=== PATIENT | female | born 1960 | race Caucasian/White ===

== ENCOUNTER → 2018-01-03 07:12 | Outpatient (CLI) | payer BC, SELFPAY ==
--- NOTE | 2018-01-03 15:47 | DI.REPORT_ITS ---
SYMPTOM/DIAGNOSIS: RIGHT HEEL PAIN M79.671 RIGHT CALCANEUS: 01/03 Three views were obtained. There are large osteophytes of the sites of attachment of plantar fascia and Achilles tendon on the calcaneus. No other significant bony abnormality seen.
== END ==
PROVIDERS: PCP Emergency Medicine; Visit Provider Emergency Medicine
DX: M79.671 Pain in right foot (principal); M25.771 Osteophyte, right ankle
CPT/HCPCS: 73650

== ENCOUNTER 2018-03-29 08:39 | Day surgery (SDC) | payer BC, SELFPAY ==
[2018-03-29 08:58] VITALS: BP 135/88; PULSE 88; RESP 16; TEMP 35.7; O2SAT 97
[2018-03-29] MEDS: Lactated Ringers 1,000 ML 80 ML IV (09:25)
[2018-03-29] MEDS: Bupivacaine 0.25% Pres-Free 30 ML VIAL (11:50)
--- NOTE | 2018-03-29 13:11 | W.PM.DSUDISC ---
Discharge Plan Disposition Patient Disposition: HOME Condition: Good Discharge Details Reason For Visit: (R) CALCANEAL SPUR / ACHILLES TENDON Attending Provider: Ranjit Navarrete Primary Care Provider: Robb Bateman Home Meds and New Rx's Prescriptions: New hydrocodone-acetaminophen 5-325 mg tablet 1 tab PO Q6H PRN (Reason: pain) Qty: 7 RF: 0 ibuprofen 600 mg tablet 600 mg PO QID PRN (Reason: pain and inflamation) Qty: 60 RF: 0 Continue multivitamin 1 EACH capsule 1 ea PO DAILY RF: 0 vitamin B complex 1 EACH capsule 1 ea PO DAILY RF: 0 omega-3 fatty acids-fish oil 1 EACH capsule 2 ea PO DAILY RF: 0 naproxen 500 MG tablet 500 mg PO BID Qty: 60 RF: 1 clonazepam 0.5 MG tablet 0.5 mg PO BID PRN Qty: 60 RF: 2 cholecalciferol (vitamin D3) 5,000 UNIT capsule 5,000 unit PO DAILY RF: 0 folic acid 1 MG tablet 1 mg PO DAILY RF: 0 albuterol sulfate [ProAir HFA] 200 PUFF HFA aerosol inhaler 200 puff Inhalation PRN PRNRF: 0 sertraline 100 mg Tablet 100 mg PO RF: 0 Discharge Orders Discharge Orders: Discharge Order (Routine); Ordered 03/29/18 Ordered By: Ranjit Navarrete DS: Diagnosis Discharge Diagnosis (1) Achilles tendonosis of right lower extremity: Status: Acute
[2018-03-29 13:45] VITALS: BP 105/61; PULSE 73; RESP 16; TEMP 35.8; O2SAT 96
--- NOTE | 2018-03-29 15:23 | ROE_ITS ---
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 POSTOPERATIVE DIAGNOSIS: Same. PROCEDURE: 1. Debridement Achilles tendon. 2. Resection retrocalcaneal exostosis. 3. Resection Ashley's deformity. SURGEON: Michelle CardenasPTucker. ANESTHESIA: Spinal anesthesia. ANESTHESIA PROVIDER: Rudy Ray CRNA OPERATIVE INDICATIONS: 57-year-old female with chronic pain associated with the above-mentioned defo rmities of right Achilles tendinosis, retrocalcaneal spur and Ashley's deformity. She understands r isks and complications to surgery pertaining to pain, scarring, infection, wound dehiscence, Achilles tendon rupture, DVT, recurrent bone spur formation over time potentially requiring revisional proced ures. Informed consent has been obtained. No promises made to the final outcome of surgery. REPORT OF OPERATION: Myriam was brought to the operative suite, placed in the prone position once her spinal anesthetic was successfully achieved. A time-out was performed. All members of the surgical suite in agreement with site, patient, current meds, allergies and risks. Attention was now directed to the right lower extremity where a tourniquet was applied and the limb e xsanguinated and a well-padded thigh tourniquet inflated 350 mmHg. Attention was directed to the pos terior aspect of the heel, where a midline incision approximately 6 cm in length was made. The incis ion was deepened in controlled depth fashion; hemostasis acquired with electrocautery as needed. The Achilles tendon was readily visible. Dissection was carried down medially and laterally, releasing soft tissue from the tendon. #3-0 nylon was used to retract the skin both medially and laterally so it would be a no-touch procedure. Attention was now directed to the tendon. At the level of its insertion a transverse tenotomy was pe rformed. Slight medial and lateral upward cuts were performed to flip the Achilles tendon upwards. Calcification of the insertion point of the Achilles tendon is appreciated with thickening of the ten don and yellowing of the tendon mass. The tendon was sharply debrided, removing all fibrosed, ossifi ed or calcified material. Attention was now directed to the calcaneus. The posterior spur was easily identified. With osteoto me and mallet the exostosis was resected. All rough and bony edges were rasped smooth. Good correct ion was appreciated. The Ashley's deformity was readily evident and with osteotome and mallet, the posterior superior pole of the os calcis was resected. I did not find a retrocalcaneal bursal sac. No additional pathologic findings were appreciated. All rough and bony edges were rasped smooth and copious irrigation with normal saline performed. At this juncture, a Mitek soft tissue 5.0 mm soft t issue anchor was inserted into the central portion of the posterior aspect of the calcaneus at the le josefina of the Achilles insertion. The Achilles was sutured down into the soft tissue anchor in standard fashion utilizing two strands of the soft tissue anchor. Excellent position was noted. The medial and lateral regions were then sutured with simple interrupted suture #3-0 Vicryl. The subcutaneous l janet was subsequently closed with #3-0 Vicryl. The skin was coapted with continuous running suture # 4-0 Monocryl. Mastisol, half-inch Steri-Strips applied. Fluff, Kerlix rolls x2 were applied. The t ourniquet was released at fifty-seven minutes with vascularity returning immediately to the right miroslava t. A well-padded posterior splint was then applied. Myriam was turned onto her back and sent back to recovery with vital signs stable, vascular status intact. Sharp and sponge counts were correct. Patel gaona will be followed by me in the office next week. cc: Robb Bateman D.O.
== END 2018-03-29 15:12 | disposition home or self-care (01) ==
PROVIDERS: PCP Emergency Medicine; Visit Provider Podiatrist
PROC: (CPT 27654; principal; 2018-03-29 10:00)
PROC: (CPT 27654; 2018-03-29 10:00)
DX: M76.61 Achilles tendinitis, right leg (principal); M77.31 Calcaneal spur, right foot; M21.6X1 Other acquired deformities of right foot
CPT/HCPCS: 27654; 28118; 28119; C1713; E0114; J0690; J1100; J1885; J2250; J2405

== ENCOUNTER 2018-04-21 15:25 | Emergency (ER) | payer BC, SELFPAY ==
[2018-04-21 15:29] VITALS: BP 135/76; PULSE 84; RESP 12; TEMP 36.7; O2SAT 96
--- NOTE | 2018-04-21 15:37 | W.ED.GENAD ---
Discharge Plan Disposition Patient Disposition: HOME Condition: Stable Discharge Details Chief Complaint: Orthopedic Clinical Impression: Encounter for cast care, Paresthesia of foot Primary Care Provider: Robb Bateman ED Provider: Veronika Yee Home Meds and New Rx's Prescriptions: Continue multivitamin 1 EACH capsule 1 ea PO DAILY RF: 0 vitamin B complex 1 EACH capsule 1 ea PO DAILY RF: 0 omega-3 fatty acids-fish oil 1 EACH capsule 2 ea PO DAILY RF: 0 naproxen 500 MG tablet 500 mg PO BID Qty: 60 RF: 1 clonazepam 0.5 MG tablet 0.5 mg PO BID PRN Qty: 60 RF: 2 cholecalciferol (vitamin D3) 5,000 UNIT capsule 5,000 unit PO DAILY RF: 0 folic acid 1 MG tablet 1 mg PO DAILY RF: 0 albuterol sulfate [ProAir HFA] 200 PUFF HFA aerosol inhaler 200 puff Inhalation PRN PRNRF: 0 sertraline 100 mg Tablet 100 mg PO RF: 0 hydrocodone-acetaminophen 5-325 mg tablet 1 tab PO Q6H PRN (Reason: pain) Qty: 7 RF: 0 ibuprofen 600 mg tablet 600 mg PO QID PRN (Reason: pain and inflamation) Qty: 60 RF: 0 Discharge Instructions Instructions: Cast Care (ED) Additional Instructions: Call Dr. Navarrete's office tomorrow morning to schedule a follow-up appointment for reevaluation. Continue non weightbearing as directed. Return to the emergency department any worsening or new concerning symptoms. Discharge Data Discharge Date/Time-TO BE ENTERED AT DEPARTURE: 04/21/18 17:17 Discharge Physician: Veronika Yee Medical Decision Making 57yo F who is just over 3 weeks s/p achilles tendinitis debridement and resection fo retrocalcaneal exostosis/Hagland's deformity by Dr. Navarrete who presents for numbness of toes and sensation of swelling to ankle x 2 days. Had hard cast placed 2 weeks ago. No new injury. Pt states she was sent by addiction medicine physician Dr. Miles for removal of the splint and evaluation and possible placement of new splint. Vitals within normal limits. Pt appears nontoxic. No evidence of obvious infection. Motor/sensory grossly intact. Pt has a hard fiberglass cast in place. As she has no obvious signs of infection such as fever, and normal skin color around cast, would not want to remove Dr. Navarrete's cast. Will attempt to speak with him first. 1630 -- d/w Dr. Navarrete -recommends cutting the cast in one section from top to bottom to allow some relief of possible pressure. States the wound looked well prior to cast placement 2 weeks ago. Will follow up with patient later this week. Cast cutter was used to make a slit in the anterior portion of the cast from top to bottom and then spreaders were used to open the cast slightly. Patient tolerated procedure well and she feels much better. Patient instructed to return here with any concerns. HPI General Mode of arrival: wheelchair. Date/Time Provider Initiated Documentation: 04/21/18 15:28. Limitations to Documentation: no limitations. Information obtained by: patient. HPI Narrative: Patient is a 57 year old F who is just over 3 weeks s/p debridement of achilles tendon with resection of bone spurs w/ Dr. Navarrete who presents for toe numbness and sensation of swelling around ankle for the past 2 days. Pt states she initially had a soft cast but a hard cast was placed 2 weeks ago. Pt denies any new injury. She denies fever, increased pain or redness. She states she has been eating and drinking well. She states she called the addiction medicine physician doctor and was advised to come to the ER for removal of her cast for evaluation and placement of a new cast. Related Data Home Medications Medication Instructions Recorded Confirmed multivitamin 1 ea PO DAILY 11/12/12 04/21/18 omega-3 fatty acids-fish oil 2 ea PO DAILY 11/12/12 04/21/18 vitamin B complex 1 ea PO DAILY 11/12/12 04/21/18 albuterol sulfate [ProAir HFA] 200 puff INHALATION PRN PRN 04/26/15 04/21/18 naproxen 500 mg PO BID #60 tab-cap 09/15/15 04/21/18 clonazepam 0.5 mg PO BID PRN #60 tab 05/31/16 04/21/18 cholecalciferol (vitamin D3) 5,000 unit PO DAILY 08/09/16 04/21/18 folic acid 1 mg PO DAILY tab-cap 08/09/16 04/21/18 sertraline 100 mg PO 03/26/18 hydrocodone-acetaminophen 1 tab PO Q6H PRN #7 tab 03/29/18 04/21/18 ibuprofen 600 mg PO QID PRN #60 tab 03/29/18 04/21/18 Previous Rx's Medication Instructions Recorded hydrocodone-acetaminophen 1 tab PO Q6H PRN #7 tab 03/29/18 ibuprofen 600 mg PO QID PRN #60 tab 03/29/18 Allergies Allergy/AdvReac Type Severity Reaction Status Date / Time bacitracin Allergy Swelling/Ed Unverified 04/21/18 15:36 mariama codeine AdvReac Intermediate VOMITING Unverified 04/21/18 15:36 General Stated Complaint: Orthopedic NELLI: 4 Review of Systems Review of Systems All systems reviewed & are unremarkable except as noted in HPI and below Constitutional Reports as per HPI, Denies chills and Denies fever(s) Eyes Denies blurry vision ENT Denies dizziness, Denies sore throat and Denies throat swelling Cardiovascular Denies chest pain and Denies dyspnea Respiratory Denies dyspnea Gastrointestinal Denies abdominal pain, Denies diarrhea and Denies vomiting Genitourinary Denies hematuria and Denies dysuria Musculoskeletal Denies back pain and Reports numbness Integumentary/Breasts Denies lesions and Denies rash Neurologic Denies dizziness and Reports numbness Allergic/Immunologic Denies throat swelling PFSH Achilles tendonitis (Acute) PTSD (post-traumatic stress disorder) (Acute) Anxiety (Chronic) Depression (Chronic) Obesity (Chronic) Family History Mother Personal history of malignant neoplasm Myasthenia Father Alcohol abuse Personal history of malignant neoplasm Sister No problems noted. Grandfather Leukemia Grandfather Dementia Grandmother Heart disease Grandmother No problems noted. Daughter No problems noted. Daughter PTSD (post-traumatic stress disorder) Depression H/O shoulder surgery (Chronic) Tonsillectomy and adenoidectomy Family History Mother Personal history of malignant neoplasm Myasthenia Father Alcohol abuse Personal history of malignant neoplasm Sister No problems noted. Grandfather Leukemia Grandfather Dementia Grandmother Heart disease Grandmother No problems noted. Daughter No problems noted. Daughter PTSD (post-traumatic stress disorder) Depression Medical History Achilles tendonitis (Acute) PTSD (post-traumatic stress disorder) (Acute) Anxiety (Chronic) Depression (Chronic) Obesity (Chronic) Social History Smoking/Tobacco Use Status: Never Surgical History H/O shoulder surgery (Chronic) Tonsillectomy and adenoidectomy Social History Smoking/Tobacco Use Status: Never Exam Const General: cooperative, healthy appearing and no acute distress HENMT Head: normal to inspection Mouth: oral mucosae normal Eyes General: appearance normal, both eyes and all related structures Neck Neck: normal visual inspection Resp Effort & Inspection: normal respiratory effort and able to speak in complete sentences Cardio Rate: regular rate Skin General skin exam: no rashes or lesions noted Neuro General: alert, awake and oriented x3 Motor: muscle tone normal throughout Other: Motor/sensory grossly intact. Wiggles toes. Full ROM R leg. Extrem Other: Hard fiberglass splint noted on R lower leg. Skin color normal. No erythema, edema, ecchymoses. Psych Appearance: grossly normal Affect: normal affect Course Vital Signs Temperature 98.1 F 04/21/18 15:29 Pulse 84 04/21/18 15:29 Respiratory Rate 12 04/21/18 15:29 Blood Pressure 135/76 04/21/18 15:29 Pulse Oximetry 96 04/21/18 15:29 Temperature 98.1 F 04/21/18 15:29 Temperature Source Temporal Artery Scan 04/21/18 15:29 Pulse 84 04/21/18 15:29 Respiratory Rate 12 04/21/18 15:29 Respiratory Effort Non-Labored 04/21/18 15:33 Blood Pressure 135/76 04/21/18 15:29 Pulse Oximetry 96 04/21/18 15:29 Oxygen Delivery Method Room Air 04/21/18 15:29 Oxygen Flow Rate 0 04/21/18 15:29 Pain Level 4 04/21/18 15:35
== END 2018-04-21 17:17 | disposition home or self-care (01) ==
LOC: ER 17:19
PROVIDERS: Emergency Provider Physician Assistant; PCP Emergency Medicine
DX: R20.2 Paresthesia of skin (principal)
CPT/HCPCS: 99282

== ENCOUNTER 2018-10-14 19:15 | Outpatient (REF) | payer OTHER, SELFPAY | END 2018-10-14 19:35 | LOC: LBN 19:15 | PROVIDERS: PCP Emergency Medicine | DX: S51.851A Open bite of right forearm, initial encounter (principal); W54.0XXA Bitten by dog, initial encounter | CPT/HCPCS: 87070; 87205 ==

== ENCOUNTER 2020-02-27 04:16 | Outpatient (CLI) | payer OTHER, SELFPAY ==
--- NOTE | 2020-02-27 06:45 | DI.US_ITS ---
EXAM: US ABDOMEN CLINICAL HISTORY: epigastric abd pain,r10.13 TECHNIQUE: Ultrasound abdomen performed using standard protocol. COMPARISON: No exams were available for comparison FINDINGS: ABDOMINAL AORTA AND IVC: Visualized portions normal caliber. PANCREAS: Normal where visualized. LIVER: Diffuse increased echogenicity. Hepatopedal flow in the Portal Vein. The liver measures 17.8 cm in length. GALLBLADDER: No evidence of cholelithiasis. No evidence of wall thickening. No pericholecystic fluid identified. BILIARY SYSTEM: Common bile duct measures < 7 mm. No intrahepatic biliary ductal dilation. VAZQUEZ'S SIGN: Negative. KIDNEYS: Kidneys are symmetric in size. No evidence of renal calculi. No evidence of hydronephrosis. No renal mass or cyst identified. SPLEEN: Not enlarged. ASCITES: None seen. IMPRESSION: Hepatomegaly and hepatic steatosis. DATA REPOSITORY:
--- NOTE | 2020-02-27 06:45 | DI.US_ITS ---
EXAM: US LOWER EXTREMITY VENOUS RT CLINICAL HISTORY: right popliteal pain,bakers cyst,m71.20 TECHNIQUE: Right lower extremity venous ultrasound performed using grayscale, color-flow, and spectr al Doppler analysis. COMPARISON: No exams were available for comparison FINDINGS: The right common femoral, femoral and popliteal veins demonstrate normal compressibility, augmentatio n, and color Doppler. The posterior tibial veins are patent. The saphenofemoral junction is unremark able. There is no evidence of a Andersen cyst. The soft tissues are unremarkable. IMPRESSION: No DVT. DATA REPOSITORY:
== END 2020-02-27 04:36 ==
PROVIDERS: PCP Emergency Medicine; Visit Provider Emergency Medicine
DX: K76.0 Fatty (change of) liver, not elsewhere classified (principal); R10.13 Epigastric pain; M25.561 Pain in right knee
CPT/HCPCS: 76700; 93971

== ENCOUNTER 2020-03-02 01:19 | Outpatient (CLI) | payer OTHER, SELFPAY ==
[2020-03-02 08:24] LABS: Hemoglobin A1C 5.6 % (<5.7)
[2020-03-02 09:10] LABS: Vitamin B12 287 pg/mL (193-986)
== END 2020-03-02 01:39 ==
PROVIDERS: PCP Emergency Medicine; Visit Provider Emergency Medicine
DX: E11.9 Type 2 diabetes mellitus without complications (principal); G62.9 Polyneuropathy, unspecified; M71.20 Synovial cyst of popliteal space [Baker], unspecified knee
CPT/HCPCS: 36415; 82607; 83036

== ENCOUNTER 2020-08-12 10:27 | Emergency (ER) | payer OTHER, SELFPAY ==
[2020-08-12] VITALS (28 sets, daily range): BP systolic 110–154; BP diastolic 62–82; PULSE 72–105; RESP 15–24; TEMP 36.4–36.5; O2SAT 94–97
--- NOTE | 2020-08-12 10:15 | RT.EKG_ITS ---
APPROVED REPORT Exam: Resting ECG Patient Location: E HR:91 bpm ECG Measurements Heart Rate 91 AXIS NV 170 P 43 QRSd 94 QRS 14 QT 367 T 31 QTc 453 Conclusion Sinus rhythm. No STEMI
--- NOTE | 2020-08-12 10:59 | ED.GENADUL_ITS ---
Discharge Plan Disposition Patient Disposition: HOME Condition: Good Discharge Details Clinical Impression: Pulmonary embolism Primary Care Provider: Robb Bateman ED Provider: Ines Dietrich Home Meds and New Rx's Prescriptions: New Eliquis DVT-PE Treat 30D Start 5 mg (74 tabs) tablets,dose pack See Rx Instructions .ROUTE .COMPLEX Qty: 74 RF: 0 ondansetron HCl [Zofran] 4 mg tablet 4 mg PO Q8H Qty: 10 RF: 0 No Action naproxen 500 mg tablet 500 mg PO BID PRNRF: 0 multivitamin 1 EACH capsule 1 ea PO DAILY RF: 0 vitamin B complex 1 EACH capsule 1 ea PO DAILY RF: 0 omega-3 fatty acids-fish oil 1 EACH capsule 2 ea PO DAILY RF: 0 cholecalciferol (vitamin D3) 5,000 UNIT capsule 5,000 unit PO DAILY RF: 0 clonazepam 0.5 mg tablet 0.5 mg PO BID PRN Qty: 60 RF: 0 fluoxetine 20 mg tablet 20 mg PO DAILY Qty: 90 RF: 3 Discharge Instructions Additional Instructions: Take Eliquis as instructed Follow-up with your doctor tomorrow and let them know you have been diagnosed with a pulmonary embolism, you have started on anticoagulation This was called Eliquis Zofran as needed for nausea and vomiting Please return for worsening shortness of breath, chest pain, if you notice blood in your stool, if you have head injury or if any new or worsening symptoms should arise Discharge Data Discharge Date/Time-TO BE ENTERED AT DEPARTURE: 08/12/20 16:31 Medical Decision Making Case discussed with Rosalina subsegmental pulmonary embolism, patient has a PESI score of61 and she is very low risk for 30-day mortality, she is stable for discharge home at this time I will place the patient on Eliquis, I discussed risk associated with bleeding in detail She will start Eliquis this evening Feeling symptomatically improved after Zofran and fluids Given negative troponin with 24 hours of symptoms I think discharge home at this time is reasonable Ambulatory with steady gait without hypoxia Low suspicion for cardiac etiology of patient's symptoms, she has a negative troponin with greater than 12 hours of symptoms which is reassuring Will need to follow-up with primary care physician tomorrow for reevaluation and Eliquis management Ambulatory with steady gait and symptomatically improved No evidence of heart strain on CT or pulmonary infarct Needed admission first returning home and patient prefers to be discharged home time she has given very low threshold to return should she have new or worsening complaints She has no signs or symptoms suggestive of COVID-19 and HPI This 68-year-old female with a history of peripheral neuritis presents with report of epigastric pain that started yesterday and persisted through the evening. Has been nausea without vomiting. Has been moving her bowels. Denies diarrhea. Denies any chest pain or shortness of breath at this time. Denies prior history of similar symptoms in the past. Denies intra-abdominal surgeries. Denies any urinary complaint. Denies known exacerbating or alleviating factors. Denies history of hypertension, hyperlipidemia, early cardiac family disease. Does not smoke tobacco. Denies prior stress test in the past. Denies recent flights, surgeries, long drives. Denies known sick contacts. General Date/Time Provider Initiated Documentation: 08/12/20 10:40 . Related Data Home Medications Medication Instructions Recorded Confirmed multivitamin 1 ea PO DAILY 11/12/12 08/12/20 omega-3 fatty acids-fish oil 2 ea PO DAILY 11/12/12 08/12/20 vitamin B complex 1 ea PO DAILY 11/12/12 08/12/20 cholecalciferol (vitamin D3) 5,000 unit PO DAILY 08/09/16 08/12/20 clonazepam 0.5 mg tablet 0.5 mg PO BID PRN #60 tab 07/17/19 08/12/20 fluoxetine 20 mg tablet 20 mg PO DAILY #90 tab 11/25/19 08/12/20 naproxen 500 mg tablet 500 mg PO BID PRN tab-cap 02/13/20 08/12/20 apixaban [Eliquis DVT-PE Treat 30D See Rx Instructions .ROUTE 08/12/20 Start] .COMPLEX #74 dose pk ondansetron HCl [Zofran] 4 mg PO Q8H #10 tab 08/12/20 Previous Rx's Medication Instructions Recorded clonazepam 0.5 mg tablet 0.5 mg PO BID PRN #60 tab 07/17/19 fluoxetine 20 mg tablet 20 mg PO DAILY #90 tab 11/25/19 apixaban [Eliquis DVT-PE Treat 30D See Rx Instructions .ROUTE 08/12/20 Start] .COMPLEX #74 dose pk ondansetron HCl [Zofran] 4 mg PO Q8H #10 tab 08/12/20 Allergies Allergy/AdvReac Type Severity Reaction Status Date / Time bacitracin Allergy Swelling/Ed Verified 08/12/20 10:36 mariama codeine AdvReac Intermediate VOMITING Verified 08/12/20 10:36 General Stated Complaint: Nausea/Vomit/Diar NELLI: 3 Review of Systems Narrative: Review of systems obtained x7 aside from where indicated in HPI [facility] Medical History (Updated 08/12/20 @ 15:19 by AURE Ochoa) Achilles tendonitis Anxiety Depression Obesity Peripheral neuritis PTSD (post-traumatic stress disorder) Surgical History H/O shoulder surgery Tonsillectomy and adenoidectomy Family History Mother Personal history of malignant neoplasm LUNG Myasthenia Father Alcohol abuse Personal history of malignant neoplasm PROSTATE Sister No problems noted. Grandfather Leukemia Grandfather Dementia Grandmother Heart disease Grandmother No problems noted. Daughter , ACCIDENTAL at age 12. No problems noted. Daughter PTSD (post-traumatic stress disorder) Depression Social History Smoking/Tobacco Use Status: Never Smoking risk assessment performed?: Yes Drug use: Never Do you feel safe in your relationship?: Yes Exam Const General: cooperative Orientation: alert HENMT Other: Moist mucous membranes Chest Chest: normal inspection of the chest Resp Effort & Inspection: normal respiratory effort Auscultation: clear to auscultation bilaterally Cardio Rate: regular rate Rhythm: regular rhythm GI Other: Abdominal tenderness, predominantly right upper quadrant epigastrium no rebound or guarding Skin Other: Warm and dry Neuro General: patient alert and patient oriented x3 Course Vital Signs Vital signs: Vital Signs Temperature 36.4 C L 08/12/20 10:33 Pulse 105 H 08/12/20 10:33 Respiratory Rate 20 08/12/20 10:33 Blood Pressure 154/80 H 08/12/20 10:33 Pulse Oximetry 95 08/12/20 10:33 Temperature 36.4 C L 08/12/20 10:33 Temperature Source Skin 08/12/20 10:33 Pulse 105 H 08/12/20 10:33 Respiratory Rate 20 08/12/20 10:33 Respiratory Effort Non-Labored 08/12/20 10:52 Blood Pressure 154/80 H 08/12/20 10:33 Blood Pressure Position Sitting 08/12/20 10:33 Pulse Oximetry 95 08/12/20 10:33 Oxygen Delivery Method Room Air 08/12/20 10:33 Oxygen Flow Rate 0 08/12/20 10:33 Pain Level 2 08/12/20 10:33
[2020-08-12] MEDS: Normal Saline 1,000 ML 1000 ML IV (11:07)
[2020-08-12] MEDS: Ondansetron 4 MG/2 ML VIAL IVP ×2 (11:07→16:16)
[2020-08-12 11:08] LABS: Abs Immature Grans 0.02 10^3/uL (0.0-0.06); Absolute Basophil Count 0.03 10^3/uL (0.0-0.2); Absolute Eosinophil Count 0.16 10^3/uL (0.0-0.7); Absolute Lymphocyte Count 1.81 10^3/uL (1.2-3.4); Absolute Monocyte Count 0.64 10^3/uL (0.1-0.8); Absolute Neutrophil Count 6.89 10^3/uL (1.2-6.7); Basophils % 0.3; Eosinophils % 1.7; HGB 14.7 g/dL (11.2-15.7); Immature Grans % 0.2; MCHC 34.2 % (32.0-36.0); MCV 93.5 fL (80-95); MPV 9.8 fL (8.0-11.0); Monocytes % 6.7; Neutrophils % 72.1; Nucleated RBC 0 %; Platelet Count 233 10^3/uL (130-400); RDW 11.9 % (11.7-14.6); RDW-SD 40.9 fL; WBC 9.55 10^3/uL (4.4-10.8)
[2020-08-12 11:23] LABS: ALT 40 U/L (14-59); AST 28 U/L (15-37); Alkaline Phosphatase 109 U/L (46-116); Anion Gap 10.6 mmol/L (3-11); BUN 13 mg/dL (7-18); Bilirubin, Total 0.9 mg/dL (0.2-1.0); CO2 26.4 mmol/L (21.0-32.0); CREATININE 0.8 mg/dL (0.55-1.02); Calcium 9.3 mg/dL (8.5-10.1); Chloride 101 mmol/L (98-107); Glucose 96 mg/dL (74-106); Lipase 193 U/L (73-393); Potassium 3.8 mmol/L (3.5-5.1); Sodium 138 mmol/L (136-145); Total Protein 7.9 g/dL (6.4-8.2)
[2020-08-12 11:24] LABS: Troponin I < 0.05 ng/mL (<0.06)
--- NOTE | 2020-08-12 11:30 | DI.CT_ITS ---
EXAM: CT THORAX ABD/PEL CTA CLINICAL HISTORY: epigastric pain, weakness, diaphoresis, shortness. TECHNIQUE: Imaging Protocol: Axial computed tomography images with coronal and sagittal reformatted images were created and reviewed CONTRAST MATERIAL: Intravenous: Omnipaque 350 Contrast volume:100 ml Oral: None COMPARISON: No exams were available for comparison FINDINGS: CHEST: AORTA: Heart size is normal. There is no pericardial effusion. Caliber of the thoracic aorta is within nor mal limits. No dissection. In the abdomen the aorta exhibits normal diameter. Minimal atherosclero tic disease. Celiac and superior mesenteric arteries are nicely patent as are the origin of the santo l arteries. Inferior mesenteric artery is also patent. There is no evidence of significant stenosis at the aortic bifurcation. Common iliac arteries exhibit normal diameters. No significant narrowin g. No dissection. External iliac arteries are also patent bilaterally as are the common femoral art eries and proximal visualized aspects of both SFA arteries. Both internal iliac arteries are patent and nonaneurysmal. LUNGS: No infiltrates nor pleural effusions. No ominous pulmonary nodule seen. There is intralumina l filling defect in 1 of the right lower lobe pulmonary arteries. Probably consistent with pulmonary embolus. There is no evidence of pulmonary infarction. Also no pleural effusions. MEDIASTINUM: There is no hilar nor mediastinal adenopathy. Visualized thyroid unremarkable. CARDIAC: Heart size is normal. There is no pericardial effusion. ABDOMEN: There is no ascites. LIVER: Liver is hypodense implying steatosis. No discrete focal hepatic lesions identified. No dila tation of intrahepatic ducts. GALLBLADDER/BILIARY: No obvious gallbladder pathology. CBD is not dilated. PANCREAS: No evidence of pancreatic mass nor dilatation of the pancreatic duct. SPLEEN: Spleen is not enlarged. There are no intrasplenic lesions. Splenic and portal veins are bradford nt. ADRENALS: There are no significant adrenal masses. KIDNEYS: Kidneys exhibit normal size. No intrarenal calculi nor hydronephrosis. No ominous renal ma sses. No obvious cysts. . ABDOMINAL AORTA: The abdominal aorta is not enlarged. LYMPH NODES: There is no retroperitoneal nor para-aortic adenopathy. No obvious mesenteric masses. ABDOMINAL WALL/GI: Small fat containing umbilical hernia. No bowel obstruction no inguinal hernias. PELVIS: LYMPH NODES: There is no intrapelvic nor inguinal adenopathy. GI: Appendix appears unremarkable.Sigmoid diverticulosis. No obvious acute diverticulitis. URINARY BLADDER: Collapsed. REPRODUCTIVE: Age-appropriate. No abnormal adnexal masses. OSSEOUS: No significant osseous lesions. IMPRESSION: 1. No evidence of aortic dissection. No pericardial effusion. No evidence of aortic aneurysm. Mild atherosclerotic disease. Aortoiliac segments also unremarkable. 2. Intraluminal filling defect right lower lobe pulmonary artery consistent with pulmonary embolus. 3. Sigmoid diverticulosis. No evidence of acute diverticulitis. Report called by myself to ER physician following completion of the study 4 1 21 RADIATION DOSE DELIVERED: 1,327.94mGy.cm Total DLP DATA REPOSITORY: All CT scans at this facility are submitted to the National Radiology Data Registry (NRDR) Dose Index Registry (DIR) with the [employer] (ACR). RADIATION OPTIMIZATION: All CT scans at this facility use at least one of these dose optimization te chniques: automated exposure control; mA and/or kV adjustment per patient size (includes targeted exa ms where dose is matched to clinical indication); or iterative reconstruction.
[2020-08-12 11:38] LABS: D-Dimer 538 ng/mlFEU (<500)
[2020-08-12] MEDS: Normal Saline - Diluent 50 ML VIAL IV (13:45)
[2020-08-12] MEDS: Omnipaque 350 MG/ML 100 ML BTL IJ (13:46)
[2020-08-12] MEDS: Normal Saline Flush 10 ML SYR IVP ×2 (13:46→16:16)
--- NOTE | 2020-08-12 15:07 | CMPROGNOTE_ITS ---
- If Service Date Differs Date of service: 08/12/20 Time of Service: 15:07 Care Management Progress Note CM was paged for Myriam's new prescription for Eliquis. CM faxed an Eliquis coupon to her pharmacy, [facility] in [place] prior to her discharge. She has commercial insurance, so she will have a $10 copay, per Eliquis coupon card.
== END 2020-08-12 16:31 | disposition home or self-care (01) ==
PROVIDERS: Emergency Provider Physician Assistant; PCP Emergency Medicine
DX: I26.93 Single subsegmental thrombotic pulmonary embolism without acute cor pulmonale (principal); R11.0 Nausea
CPT/HCPCS: 74177; 80053; 83690; 93005; 96361; 96374; 96376; 99285; 84484; 85025; 85379; 93010; 99284; J2405; J3490

== ENCOUNTER 2020-08-13 10:04 | Outpatient (CLI) | payer OTHER, SELFPAY ==
[2020-08-14 14:35] LABS: COVID-19 RT-PCR UVMMC Result Negative (Negative)
== END 2020-08-13 10:05 | disposition home or self-care (01) ==
PROVIDERS: PCP Emergency Medicine; Visit Provider Emergency Medicine
DX: Z20.822 Contact with and (suspected) exposure to COVID-19 (principal)
CPT/HCPCS: U0003

== ENCOUNTER 2020-08-18 09:06 | Outpatient (REF) | payer OTHER, SELFPAY ==
[2020-08-18 11:50] LABS: Abs Immature Grans 0.02 10^3/uL (0.0-0.06); Absolute Basophil Count 0.04 10^3/uL (0.0-0.2); Absolute Eosinophil Count 0.19 10^3/uL (0.0-0.7); Absolute Lymphocyte Count 1.72 10^3/uL (1.2-3.4); Absolute Monocyte Count 0.45 10^3/uL (0.1-0.8); Absolute Neutrophil Count 3.27 10^3/uL (1.2-6.7); Basophils % 0.7; Eosinophils % 3.3; HCT 42.3 % (36.0-46.0); HGB 14.2 g/dL (11.2-15.7); Immature Grans % 0.4; Lymphocytes % 30.2; MCH 31.7 pg (27.0-33.0); MCHC 33.6 % (32.0-36.0); MCV 94.4 fL (80-95); MPV 10.2 fL (8.0-11.0); Monocytes % 7.9; Neutrophils % 57.5; Nucleated RBC 0 %; Platelet Count 269 10^3/uL (130-400); RBC 4.48 10^6/uL (3.93-5.22); RDW 11.9 % (11.7-14.6); RDW-SD 41.2 fL; WBC 5.69 10^3/uL (4.4-10.8)
[2020-08-18 11:53] LABS: ESR 9 mm//hr (0-30)
[2020-08-18 12:03] LABS: C-Reactive Protein 0.32 mg/dL (0.0-0.3)
[2020-08-18 12:32] LABS: D-Dimer 596 ng/mlFEU (<500)
== END 2020-08-18 09:07 | disposition home or self-care (01) ==
LOC: LBN 09:06
PROVIDERS: PCP Emergency Medicine; Visit Provider Emergency Medicine
DX: I26.99 Other pulmonary embolism without acute cor pulmonale (principal)
CPT/HCPCS: 85652; 85025; 85379; 86140

== ENCOUNTER 2021-01-25 03:36 | Outpatient (RCR) | payer OTHER, SELFPAY ==
--- NOTE | 2021-01-25 09:00 | HOLTER_ITS ---
APPROVED REPORT Conclusion This was a 48-hour Holter monitor reportedly ordered for tachycardia Rhythm throughout was sinus. Average heart rate was 89. Minimum was 65, maximum 135 There were very rare isolated atrial and ventricular ectopic beats There was no atrial fibrillation, no high-grade AV block, no pauses greater than 3 seconds No patient symptoms were reported
== END 2021-02-10 23:59 | disposition home or self-care (01) ==
LOC: RT 03:36
PROVIDERS: PCP Emergency Medicine; Visit Provider Emergency Medicine
DX: R00.0 Tachycardia, unspecified (principal)
CPT/HCPCS: 93225; 93226

== ENCOUNTER 2021-06-24 02:18 | Outpatient (CLI) | payer OTHER, SELFPAY ==
[2021-06-24 10:31] LABS: ALT 44 U/L (14-59); AST 23 U/L (15-37); Albumin 4.1 g/dL (3.4-5.0); Alkaline Phosphatase 114 U/L (46-116); Bilirubin, Direct 0.1 mg/dL (0.0-0.2); Bilirubin, Total 0.5 mg/dL (0.2-1.0); TSH 3.76 uIU/mL (0.36-3.74); Total Protein 7.3 g/dL (6.4-8.2)
[2021-06-24 10:46] LABS: Calculated LDL 179 mg/dL (<100); Cholesterol 263 mg/dL (<200); HDL Cholesterol 46 mg/dL (40-60); Triglyceride 190 mg/dL (<150)
== END 2021-06-24 02:19 | disposition home or self-care (01) ==
LOC: LBO 02:18
PROVIDERS: PCP Family Medicine; Visit Provider Emergency Medicine
DX: R10.13 Epigastric pain (principal); R00.0 Tachycardia, unspecified; K75.81 Nonalcoholic steatohepatitis (NASH); F41.8 Other specified anxiety disorders; R79.89 Other specified abnormal findings of blood chemistry
CPT/HCPCS: 36415; 80061; 80076; 84443

== ENCOUNTER 2021-12-06 02:56 | Outpatient (CLI) | payer OTHER, SELFPAY ==
--- NOTE | 2021-12-06 07:45 | DI.RAD_ITS ---
Exam(s) XR SHOULDER LT COMPLETE 2+V EXAM: XR SHOULDER LT COMPLETE 2+V CLINICAL HISTORY: fall one month ago persistant pain, lt shoulder pain, M25.512. TECHNIQUE: 2D digital imaging was performed of the left shoulder. Five images were obtained. AP, G rashey, Y-view and axillary views were obtained. COMPARISON: CR LEFT SHOULDER COMPLETE from 03/15/2015 FINDINGS: BONES: No acute fracture is present. No bony destructive lesion is seen. JOINTS: No dislocation present. Mild degenerative changes are seen at the acromioclavicular joint. SOFT TISSUE: Normal. IMPRESSION: Mild degenerative changes of the AC joint. DATA REPOSITORY: RADIATION DOSE DELIVERED:
== END 2021-12-06 03:16 ==
LOC: DI 02:56
PROVIDERS: PCP Family Medicine; Visit Provider Physician Assistant
DX: M25.512 Pain in left shoulder (principal); G89.11 Acute pain due to trauma; M19.012 Primary osteoarthritis, left shoulder; W19.XXXA Unspecified fall, initial encounter
CPT/HCPCS: 73030

== ENCOUNTER 2022-02-22 01:41 | Outpatient (CLI) | payer OTHER, SELFPAY ==
--- NOTE | 2022-02-22 06:30 | DI.MRI_ITS ---
Exam(s) MR UPPER JOINT LT WO CLINICAL HISTORY: SHOULDER INJURY,lt shoulder pain, m25.512. TECHNIQUE: Multiplanar multisequence MRI was performed. COMPARISON: None FINDINGS: MR examination of the shoulder was performed according to the usual protocol. There is no significant effusion of the glenohumeral joint. Trace fluid in the subacromial subdeltoi d bursa. Bones and labrum: No bony signal abnormality seen. Moderate hypertrophic changes at the acromioclavi cular joint. Glenoid labrum appears deficient anteriorly consistent with a chronic tear. There is t hinning of the articular cartilage of the humerus period. Rotator cuff: Supraspinatus infraspinatus, and teres minor muscles and tendons show normal signal an d no evidence of a tear. There is markedly abnormal signal in the subscapularis tendon with full-thickness tear noted, central portions of the tendon appear retracted but there are also of portions of the pending 8 insertion wh ich appear intact. Rotator interval structures are poorly defined and apparently disrupted with significant rotator inte rval tear. Biceps tendon and anchor: Biceps tendon and anchor show abnormal signal, no definite retracted tear.. Biceps tendon is markedly displaced medially from the bicipital groove.. IMPRESSION: Full-thickness subscapularis tendon tear with retraction of central portions of the tendon. Marked a ssociated rotator interval tear, marked medial displacement of long head of the biceps with biceps te ndinopathy, and apparent anterior glenoid labral tear.. Remainder of the rotator cuff appears intact. DATA REPOSITORY:
== END 2022-02-22 02:01 ==
LOC: DI 01:42
PROVIDERS: PCP Family Medicine; Visit Provider Student in an Organized Health Care Education/Training Program
DX: M75.102 Unspecified rotator cuff tear or rupture of left shoulder, not specified as traumatic
CPT/HCPCS: 73221

== ENCOUNTER 2022-02-23 12:37 | Emergency (ER) | payer OTHER, SELFPAY ==
[2022-02-23 12:40] VITALS: BP 136/82; PULSE 90; RESP 18; TEMP 37; O2SAT 99
--- NOTE | 2022-02-23 13:00 | DI.RAD_ITS ---
Exam(s) XR KNEE LT 3V AP,LAT,MAIK EXAM: XR KNEE LT 3V AP,LAT,MAIK CLINICAL HISTORY: pain, swelling, post fall. TECHNIQUE: 2D digital imaging was performed of the left knee. Three images were obtained. AP, late ral and PA tunnel views were obtained. COMPARISON: None. FINDINGS: BONES: There is an acute nondisplaced patellar fracture. No bony destructive lesion is seen. JOINTS: The knee is normally aligned. There is a hemarthrosis. [id number] degenerative changes are seen in all 3 joint compartments. SOFT TISSUE: Normal. IMPRESSION: Acute nondisplaced patellar fracture. DATA REPOSITORY: RADIATION DOSE DELIVERED:
[2022-02-23] MEDS: Ondansetron O.D.T. 4 MG TABEF 8 MG PO (13:27)
[2022-02-23] MEDS: oxyCODONE 5 mg/Acetaminophen 325 mg TAB 1 TAB PO (13:27)
--- NOTE | 2022-02-23 15:04 | W.ORTHOCONSU ---
Assessment and Plan Assessment and plan (1) Fracture of patella, left, closed: Status: Acute Assessment and plan: 61-year-old female status post mechanical fall with left non-displaced patella fracture, left ankle abrasion, and right wrist contusion; recently worked up left rotator cuff tear Left anterior knee edema. Left ankle superficial abrasion. Right wrist volar ecchymosis without deformity. Able to maintain straight leg raise and ambulate appropriately with walker and hinged knee brace. Discussed usual nonoperative treatment of nondisplaced, largely longitudinal oriented patella fracture. Weightbearing as tolerated in full extension at all times using knee brace and walker for support. Follow-up with me next week as patient already has appointment to review her left shoulder MRI. PFSH All Active Problems (Updated 02/23/22 @ 15:05 by David Morales MD) Fracture of patella, left, closed (Acute 02/23/22) Traumatic tear of left rotator cuff (Acute 11/09/21) Shoulder pain, left (Acute) COVID-19 (Acute ~10/25/21) Elevated TSH (Acute) Anxiety (Chronic) Depression (Chronic) Sensorineural hearing loss (SNHL) of both ears (Acute 08/10/14) Overweight (Acute 10/10/16) STUART (nonalcoholic steatohepatitis) (Acute) Peripheral neuritis (Acute) Medical History Achilles tendonosis of right lower extremity Acromioclavicular joint arthritis (05/10/15) History of asthma History of melanoma Hx pulmonary embolism (~08/2020) occurred 3 days after covid vaccination Migraine equivalent syndrome (09/09/14) TIA like symptoms Mucous polyp of cervix Obesity Pancolonic diverticulosis 04/26/15; DR. CONLEY Psoriatic arthritis (10/10/16) PTSD (post-traumatic stress disorder) Surgical History H/O shoulder surgery S/P tonsillectomy and adenoidectomy Family History Mother , 76 Personal history of malignant neoplasm LUNG Myasthenia Father , 78 Alcohol abuse Personal history of malignant neoplasm PROSTATE Sister Anxiety Grandfather Leukemia Grandfather Dementia Grandmother Heart disease Daughter , 23 PTSD (post-traumatic stress disorder) Depression Alcohol abuse Social History Smoking/Tobacco Use Status: Never Second Hand Exposure: Yes Smoking risk assessment performed?: Yes Alcohol Intake: current Alcohol Intake frequency: a few times a week Alcohol type: wine and hard liquor Drug use: Occasionally Substance use type: marijuana Household members: significant other Housing: house Communication Needs: Hard of Hearing Do you need help understanding health information?: Rarely 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[employer] Pets and animals: Yes Pets and animals: cat(s) and dog(s) Sexually active: Yes Do you think of yourself as: straight/heterosexual Current gender identity: female What is your relationship status?: How often do you talk on the phone with friends or family?: three or more times per week How often do you attend confucianist or pentecostal services?: 4 or more times per year Do you belong to any clubs or organized social groups?: no Panel score (0-1 are the most socially isolated patients): 2 Brandy/Christian: Quaker Special brandy needs: No Seatbelt use: always Helmet use: No Drive intox or ride w/intox delivery driver assistant: No Do you feel safe in your relationship?: Yes Results Last Vital Signs Temp 98.6 F 02/23/22 12:40 Pulse 90 02/23/22 12:40 Resp 18 02/23/22 12:40 BP 136/82 02/23/22 12:40 Pulse Ox 99 02/23/22 12:40
--- NOTE | 2022-02-25 20:38 | W.ED.GENAD ---
Discharge Plan Disposition Patient Disposition: HOME Condition: Stable Discharge Details Clinical Impression: Closed patellar sleeve fracture Primary Care Provider: Lynn Sanchez ED Provider: Ines Dietrich Home Meds and New Rx's Prescriptions: New oxycodone 5 mg capsule 5 mg PO Q6H PRNQty: 10 0RF Continued clonazepam 0.5 mg tablet 0.5 mg PO BID PRN Qty: 60 5RF omeprazole 20 mg capsule,delayed release(DR/EC) 20 mg PO DAILY Qty: 60 6RF omega-3 fatty acids [Fish Oil Concentrate] 1,000 mg capsule 1,000 mg PO DAILY magnesium 250 mg tablet 250 mg PO DAILY multivitamin 1 EACH capsule 1 ea PO DAILY vitamin B complex 1 EACH capsule 1 ea PO DAILY cholecalciferol (vitamin D3) 5,000 UNIT capsule 5,000 unit PO DAILY Eliquis 2.5 mg tablet See Rx Instructions .ROUTE .COMPLEX Qty: 180 1RF Dose Instruction: TAKE ONE TABLET BY MOUTH TWICE A DAY (DOSE DECREASE) Rx Instructions: TAKE ONE TABLET BY MOUTH TWICE A DAY (DOSE DECREASE) fluoxetine 40 mg capsule 40 mg PO DAILY Qty: 90 1RF Discharge Instructions Additional Instructions: Take oxycodone as needed for pain Take Tylenol every 4-6 hours as needed for discomfort Wear your knee immobilizer Please return with any new or worsening complaints Follow-up with Dr. Morales at your scheduled appointment next week Referrals: Lynn Sanchez MD [Primary Care Provider] - 1 day Discharge Data Discharge Date/Time-TO BE ENTERED AT DEPARTURE: 02/23/22 15:16 Medical Decision Making pt appears well xray knee per radiology interpretation and my review does not show evidence of acute abnormality no sign of head injury and alert and oriented discharged home in stable condition with stable vitals Medical Records Medical records reviewed: Yes I reviewed the patient's medical records. Lab Data Lab results reviewed: Yes I reviewed the patient's lab results. ECG Data Prior ECG tracings: available for review HPI General Date/Time Provider Initiated Documentation: 02/23/22 12:37. HPI Narrative: This 31-year-old female presents status post fall last night. She missed a step reportedly. She hit her left knee, right leg, and left shoulder. Denies difficulty ambulating. Reports no loss of consciousness. Denies head injury. Related Data Home Medications Medication Instructions Recorded Confirmed multivitamin 1 ea PO DAILY 07/02/13 10/13/22 vitamin B complex 1 ea PO DAILY 11/12/12 02/23/22 cholecalciferol (vitamin D3) 125 5,000 unit PO DAILY 08/09/16 02/23/22 mcg (5,000 unit) capsule magnesium 250 mg tablet 250 mg PO DAILY 08/18/20 02/23/22 omega-3 fatty acids 1,000 mg 1,000 mg PO DAILY 08/18/20 02/23/22 capsule (Fish Oil Concentrate) clonazepam 0.5 mg tablet 0.5 mg PO BID PRN #60 tabs 12/30/20 02/23/22 omeprazole 20 mg capsule,delayed 20 mg PO DAILY #60 caps 06/02/21 02/23/22 release apixaban 2.5 mg tablet (Eliquis) See Rx Instructions .Route 06/30/21 02/23/22 .COMPLEX #180 tabs fluoxetine 40 mg capsule 40 mg PO DAILY #90 caps 12/19/21 02/23/22 oxycodone 5 mg capsule 5 mg PO Q6H PRN #10 caps 02/23/22 Previous Rx's Medication Instructions Recorded clonazepam 0.5 mg tablet 0.5 mg PO BID PRN #60 tabs 12/30/20 omeprazole 20 mg capsule,delayed 20 mg PO DAILY #60 caps 06/02/21 release apixaban 2.5 mg tablet (Eliquis) See Rx Instructions .Route 06/30/21 .COMPLEX #180 tabs fluoxetine 40 mg capsule 40 mg PO DAILY #90 caps 12/19/21 oxycodone 5 mg capsule 5 mg PO Q6H PRN #10 caps 02/23/22 Allergies Allergy/AdvReac Type Severity Reaction Status Date / Time bacitracin Allergy Swelling/Ed Verified 01/17/22 13:17 mariama codeine AdvReac Intermediate VOMITING Verified 01/17/22 13:17 General Stated Complaint: Trauma NELLI: 3 Review of Systems All systems reviewed & are unremarkable except as noted in HPI and below PFSH All Active Problems (Updated 02/23/22 @ 15:05 by David Morales MD) Fracture of patella, left, closed (Acute 02/23/22) Traumatic tear of left rotator cuff (Acute 11/09/21) Shoulder pain, left (Acute) COVID-19 (Acute ~10/25/21) Elevated TSH (Acute) Anxiety (Chronic) Depression (Chronic) Sensorineural hearing loss (SNHL) of both ears (Acute 08/10/14) Overweight (Acute 10/10/16) STUART (nonalcoholic steatohepatitis) (Acute) Peripheral neuritis (Acute) Medical History Achilles tendonosis of right lower extremity Acromioclavicular joint arthritis (05/10/15) History of asthma History of melanoma Hx pulmonary embolism (~08/2020) occurred 3 days after covid vaccination Migraine equivalent syndrome (09/09/14) TIA like symptoms Mucous polyp of cervix Obesity Pancolonic diverticulosis 04/26/15; DR. CONLEY Psoriatic arthritis (10/10/16) PTSD (post-traumatic stress disorder) Surgical History H/O shoulder surgery S/P tonsillectomy and adenoidectomy Family History Mother , 76 Personal history of malignant neoplasm LUNG Myasthenia Father , 78 Alcohol abuse Personal history of malignant neoplasm PROSTATE Sister Anxiety Grandfather Leukemia Grandfather Dementia Grandmother Heart disease Daughter , 23 PTSD (post-traumatic stress disorder) Depression Alcohol abuse Social History Smoking/Tobacco Use Status: Never Second Hand Exposure: Yes Smoking risk assessment performed?: Yes Alcohol Intake: current Alcohol Intake frequency: a few times a week Alcohol type: wine and hard liquor Drug use: Occasionally Substance use type: marijuana Household members: significant other Housing: house Communication Needs: Hard of Hearing Do you need help understanding health information?: Rarely 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[employer] Pets and animals: Yes Pets and animals: cat(s) and dog(s) Sexually active: Yes Do you think of yourself as: straight/heterosexual Current gender identity: female What is your relationship status?: How often do you talk on the phone with friends or family?: three or more times per week How often do you attend christian or mandaen services?: 4 or more times per year Do you belong to any clubs or organized social groups?: no Panel score (0-1 are the most socially isolated patients): 2 Brandy/Tenriism: Anabaptism Special brandy needs: No Seatbelt use: always Helmet use: No Drive intox or ride w/intox utility worker driver: No Do you feel safe in your relationship?: Yes Exam Const General: cooperative, comfortable and no acute distress Orientation: alert and oriented x3 Eyes Pupils: PERRL Neck Other: no midline tenderness Chest Chest: normal inspection of the chest Resp Effort & Inspection: normal respiratory effort Cardio Rate: regular rate Rhythm: regular rhythm GI Inspection: normal to inspection Other: non-tender without visible evidence of trauma Skin General skin exam: no rashes or lesions noted Neuro General: patient alert and patient oriented x3 Cranial Nerves: CN's II-XI intact bilaterally and tongue midline Cognition: normal cognition Sensory Exam: no sensory deficits noted Extrem Other: Knee with swelling, tenderness Mild tenderness to right wrist with range of motion intact Left shoulder without new pain able to range at baseline., Neurovascularly intact Course Vital Signs Vital signs: Vital Signs Temperature 37 C 02/23/22 12:40 Pulse 90 02/23/22 12:40 Respiratory Rate 18 02/23/22 12:40 Blood Pressure 136/82 02/23/22 12:40 Pulse Oximetry 99 02/23/22 12:40 Temperature 37 C 02/23/22 12:40 Temperature Source Temporal Artery Scan 02/23/22 12:40 Pulse 90 02/23/22 12:40 Respiratory Rate 18 02/23/22 12:40 Respiratory Effort 02/23/22 15:05 Respiratory Depth Normal 02/23/22 15:05 Respiratory Pattern Normal 02/23/22 15:05 Blood Pressure 136/82 02/23/22 12:40 Blood Pressure Position Sitting 02/23/22 12:40 Pulse Oximetry 99 02/23/22 12:40 Oxygen Delivery Method Room Air 02/23/22 12:40 Oxygen Flow Rate 0 02/23/22 12:40 Pain Level 6 02/23/22 12:40
== END 2022-02-23 15:16 | disposition home or self-care (01) ==
LOC: ER 14:58
PROVIDERS: Emergency Provider Physician Assistant; PCP Family Medicine
DX: S82.002A Unspecified fracture of left patella, initial encounter for closed fracture (principal); S60.211A Contusion of right wrist, initial encounter; S90.512A Abrasion, left ankle, initial encounter; W19.XXXA Unspecified fall, initial encounter
CPT/HCPCS: 73562; 99283; 99284

== ENCOUNTER 2022-02-28 10:27 | Outpatient (CLI) | payer OTHER, SELFPAY ==
--- NOTE | 2022-02-28 10:15 | DI.RAD_ITS ---
Exam(s) XR KNEE LT 3V AP,LAT,MAIK EXAM: XR KNEE LT 3V AP,LAT,MAIK CLINICAL HISTORY: LEFT KNEE PAIN. TECHNIQUE: 2D digital imaging was performed of the left knee. Three images were obtained. Merchant ,AP, lateral and PA tunnel views were obtained. COMPARISON: CR XR KNEE LT 3V AP,LAT,MAIK from 02/23/2022 FINDINGS: BONES: There has been no change in alignment of the patellar fracture. No bony destructive lesion i s seen. JOINTS: Stable moderate [place] severe degenerative changes are seen in the knee involving all 3 joint co mpartments. There is been interval decrease in size of the joint effusion. SOFT TISSUE: Normal. IMPRESSION: Stable patellar fracture. DATA REPOSITORY: RADIATION DOSE DELIVERED:
== END 2022-02-28 10:28 | disposition home or self-care (01) ==
LOC: DIORS 10:27
PROVIDERS: PCP Family Medicine; Referring Provider Family Medicine; Visit Provider Student in an Organized Health Care Education/Training Program
DX: S82.002D Unspecified fracture of left patella, subsequent encounter for closed fracture with routine healing (principal); X58.XXXD Exposure to other specified factors, subsequent encounter
CPT/HCPCS: 73562

== ENCOUNTER 2022-03-21 13:24 | Outpatient (CLI) | payer OTHER, SELFPAY ==
--- NOTE | 2022-03-21 13:15 | DI.RAD_ITS ---
Exam(s) XR KNEE LT 2V AP,LAT EXAM: XR KNEE LT 2V AP,LAT CLINICAL HISTORY: Pain in left knee. TECHNIQUE: 2D digital imaging was performed of the left knee. Two images were obtained. AP and lat eral views were obtained. COMPARISON: CR XR KNEE LT 3V AP,LAT,MAIK from 02/28/2022 FINDINGS: BONES: The patellar fracture is still visualized. It is unchanged in alignment. No bony destructiv e lesion is seen. JOINTS: Tricompartment degenerative changes are noted. There does appear to be a tiny joint effusion . SOFT TISSUE: Normal. IMPRESSION: No change in alignment of the patellar fracture. DATA REPOSITORY: RADIATION DOSE DELIVERED:
== END 2022-03-21 13:25 | disposition home or self-care (01) ==
LOC: DIORS 13:24
PROVIDERS: PCP Family Medicine; Referring Provider Family Medicine; Visit Provider Student in an Organized Health Care Education/Training Program
DX: S82.002D Unspecified fracture of left patella, subsequent encounter for closed fracture with routine healing (principal); X58.XXXD Exposure to other specified factors, subsequent encounter
CPT/HCPCS: 73560

== ENCOUNTER 2022-04-18 13:58 | Outpatient (CLI) | payer OTHER, SELFPAY ==
--- NOTE | 2022-04-18 13:15 | DI.RAD_ITS ---
Exam(s) XR KNEE LT 2V AP,LAT EXAM: XR KNEE LT 2V AP,LAT CLINICAL HISTORY: left patella fracture. TECHNIQUE: 2D digital imaging was performed of the left knee. Two images were obtained. AP and lat eral views were obtained. COMPARISON: CR XR KNEE LT 2V AP,LAT from 03/21/2022 FINDINGS: BONES: The patellar fracture is still visualized. No new fracture is identified. No bony destructi ve lesion is seen. JOINTS: Tricompartment degenerative changes are present and stable. No joint effusion is seen. SOFT TISSUE: Normal. IMPRESSION: Stable patellar fracture. DATA REPOSITORY: RADIATION DOSE DELIVERED:
== END 2022-04-18 13:59 | disposition home or self-care (01) ==
LOC: DIORS 13:58
PROVIDERS: PCP Family Medicine; Referring Provider Family Medicine; Visit Provider Physician Assistant
DX: S82.002D Unspecified fracture of left patella, subsequent encounter for closed fracture with routine healing (principal); X58.XXXD Exposure to other specified factors, subsequent encounter
CPT/HCPCS: 73560

== ENCOUNTER 2022-04-28 05:54 | Day surgery (SDC) | payer OTHER, SELFPAY ==
[2022-04-28] VITALS (11 sets, daily range): BP systolic 125–171; BP diastolic 59–89; PULSE 69–89; RESP 10–16; TEMP 36.2–36.7; O2SAT 96–98; BMI 29.0
[2022-04-28] MEDS: Lactated Ringers 1,000 ML 30 ML IV (06:33)
--- NOTE | 2022-04-28 06:44 | W.ANESPRE ---
General Info Date of Service Date Performed: 04/28/22 Height: 5 ft 10.5 in Weight: 92.9 kg Body Mass Index (BMI): 29.0 Surgical Procedure: Operation Date: 04/28/22 07:40 Proposed Procedure Side Surgeon p Shoulder Rotator Cuff Arthroscopic /Extensive Debridement, Biceps Tenodesis, Subacromial Decompression Left David Morales MD Meds Allergies and Home Medications Allergies Allergy/AdvReac Type Severity Reaction Status Date / Time bacitracin Allergy Swelling/Ed Verified 04/28/22 06:04 mariama codeine AdvReac Intermediate VOMITING Verified 04/28/22 06:04 Home Medication Medication Instructions Recorded multivitamin 1 ea PO DAILY 11/12/12 vitamin B complex 1 ea PO DAILY 11/12/12 cholecalciferol (vitamin D3) 125 5,000 unit PO DAILY 08/09/16 mcg (5,000 unit) capsule magnesium 250 mg tablet 250 mg PO DAILY 08/18/20 omega-3 fatty acids 1,000 mg 1,000 mg PO DAILY 08/18/20 capsule (Fish Oil Concentrate) clonazepam 0.5 mg tablet 0.5 mg PO BID PRN #60 tabs 12/30/20 omeprazole 20 mg capsule,delayed 20 mg PO DAILY #60 caps 06/02/21 release fluoxetine 40 mg capsule 40 mg PO DAILY #90 caps 12/19/21 aspirin 81 mg tablet,delayed 81 mg PO DAILY prevent blood clot 04/28/22 release 7 days #7 tabs naproxen 250 mg tablet 250 - 500 mg PO BID PRN #40 tabs 04/28/22 ondansetron 4 mg disintegrating 4 mg PO Q6H PRN nausea or vomiting 04/28/22 tablet #5 tabs oxycodone 5 mg tablet 5 - 10 mg PO Q4H PRN moderate to 04/28/22 severe pain #18 tabs Current Visit Medications: Current Medications Generic Name Dose Route Start Last Admin Trade Name Freq PRN Reason Stop Dose Admin Ringer's Solution 1,000 mls @ 30 mls/hr 04/28/22 06:00 04/28/22 06:33 IV 05/27/22 23:59 30 mls/hr INFUSION RAVEN Administration Cefazolin Sodium/Dextrose 2 gm in 50 mls @ 100 mls/hr 04/28/22 06:00 Ancef Duplex IVPB 05/27/22 23:59 PREOP RAVEN IV Miscellaneous Supplies 1 each 04/28/22 06:00 Iv Access IV 05/27/22 23:59 DIRECTED RAVEN Sodium Chloride 0 ml 04/28/22 06:00 Normal Saline Flush 10 Ml Syr IV 05/27/22 23:59 PRN PRN Sodium Chloride 0 ml 04/28/22 06:00 Normal Saline 10 Ml Vial IJ 05/27/22 23:59 DIRECTED PRN Sterile Water 0 ml 04/28/22 06:00 Water,Injection,Sterile 10 Ml Vial IJ 05/27/22 23:59 DIRECTED PRN PFSH Active Problems Active Problems: Problem Status Onset Code Depression F32.9 Anxiety F41.9 Peripheral neuritis G62.9 STUART (nonalcoholic steatohepatitis) K75.81 Overweight 10/10/16 E66.3 Sensorineural hearing loss (SNHL) of both ears 08/10/14 H90.3 Elevated TSH R79.89 COVID-19 ~10/25/21 U07.1 Traumatic tear of left rotator cuff 11/09/21 S46.012A Fracture of patella, left, closed 02/23/22 S82.002A Tendinitis of long head of biceps brachii of left shoulder M75.22 Medical History Medical History Achilles tendonosis of right lower extremity Acromioclavicular joint arthritis (05/10/15) History of asthma History of melanoma Hx pulmonary embolism (~08/2020) occurred 3 days after covid vaccination update 04/26/22 Report 08/17/20 US Findings: No evidence of deep venous thrombosis of the left lower extremity. Migraine equivalent syndrome (09/09/14) TIA like symptoms Mucous polyp of cervix Obesity Pancolonic diverticulosis 04/26/15; DR. CONLEY Psoriatic arthritis (10/10/16) PTSD (post-traumatic stress disorder) Shoulder pain, left Medical History Comments:: Felipe 4x week for anxiety, edibles Surgical History Surgical History H/O shoulder surgery Hx of foot surgery bilateral; approx S/P tonsillectomy and adenoidectomy Tobacco Smoking/Tobacco Use Status: Never Second hand exposure: Yes Alcohol Alcohol Intake: current Alcohol intake frequency: a few times a week Alcohol type: wine and hard liquor Substance Use Substance use: Occasionally Substance use type: marijuana Details: 4x week for anxiety, edibles Vital Signs and Lab Results Vital Signs Most Recent Vital Signs in EMR: Most Recent Vital Signs Temp Pulse Resp BP Pulse Ox 36.2 C L 84 16 127/81 98 04/28/22 06:07 04/28/22 06:07 04/28/22 06:07 04/28/22 06:07 04/28/22 06:07 Lab Results Blood Type / Crossmatch: No Data to Display Complete Blood Count: No Data to Display Complete Metabolic Panel: No Data to Display Liver Function Panel: No Data to Display Coagulation Panel: No Data to Display Cardiac Panel: No Data to Display Arterial Blood Gas: No Data to Display Venous Blood Gas: No Data to Display Pancreas Panel: No Data to Display Thyroid Panel: No Data to Display Infectious Disease: No Data to Display Blood Cultures: No Data to Display Toxicology Panel: No Data to Display Anesthesia Assessment and Plan Anesthesia History Personal History: No History of Anesthesia Complications Family History: No Family History of Anesthesia Complications Exercise Tolerance Exercise Tolerance: Metabolic Equivalents>4 Pertinent Negatives Pertinent Negatives: No Major Cardiovascular Symptoms or Complaints and No Major Pulmonary Symptoms or Complaints Cardiac & Pulmonary Exam Cardiac Exam: Normal S1/S2 Heart Sounds Pulmonary Exam: Clear Bilateral Breath Sounds Implantable Cardiac Device Does patient have a Pacemaker or an ICD?: No Airway Exam Known Difficult Airway: No Mallampati Class: 2 Mouth Opening: Normal (> 3cm) Thyromental Distance: Greater than 3 cm Neck Range of Motion: Full ROM Neck Circumference: Normal Teeth Condition: Normal Dentition ASA Classification ASA Score: ASA 2 Emergency Case?: No NPO Status NPO Status: NPO Clears >2 hours, Solids >8 hours Anesthesia Plan Resuscitation Status: Full Code Anesthesia Technique: General Anesthesia Airway Planned: Endotracheal Tube Pain Management: Surgeon and patient request nerve block (Intrascalene) Monitors Used: Standard Monitors Preoperative Comments:: GERD poorly controlled, no sx's during prepping,
[2022-04-28] MEDS: ceFAZolin 2 GM/50 ML BAG IVPB (08:05)
--- NOTE | 2022-04-28 08:07 | W.ANESNERVE ---
Nerve Block Single Injection Procedure Date and Time Date Performed: 04/28/22 Procedure Start: 07:19 Location Where Procedure Performed Procedure Location: Day Surgery Unit Reason Performed: Postoperative Analgesia Requesting Provider: David Morales Timeout Performed Timeout Performed: Yes Monitoring Used ECG, Blood Pressure and SpO2 Sterility Sterility: Hand Hygiene, Surgical Cap, Surgical Mask, Sterile Gloves and Chlorhexidine Sedation Given During Procedure Sedation Given (Indicate Dose Given): Versed IV Dose:: 2mg Patient Mental Status Patient Mental Status: Sedate with meaningful communication Nerve Block 1st Nerve Block: Laterality: Left Block Type: Interscalene Needle / Catheter Used: 100mm SonoPlex II Local Anesthetic Bolus (Indicate Dose Given): Lidocaine used for local infiltration of skin, Injected in 3-5ml increments after negative blood aspiration, Bupivacaine 0.5% Dose:: 10cc and Exparel Dose:: 10cc Additives (Indicate Dose Given): None Ultrasound: Sterile probe cover and gel used Ultrasound Image Saved?: Yes Nerve Stimulator: Not Used Paresthesia: Left Paresthesia Duration: Transient (Resolved after needle withdrawn ) Post Procedure Pain score (0-10): 0 Procedure Tolerated: No Complications and Patient tolerated well Procedure Outcome: Successful Performed By: Homero Fregoso
[2022-04-28] MEDS: Bupivacaine 0.25% Pres-Free W/EPI 30 ML VIAL (08:40)
[2022-04-28] MEDS: EPINEPHrine 30 MG/30 ML VIAL (08:41)
--- NOTE | 2022-04-28 09:40 | W.PM.DSUDISC ---
Date of service: 04/28/22 Time of Service: 12:00 Discharge Plan Disposition Patient Disposition: Home Condition: Stable Discharge Details Attending Provider: David Morales Primary Care Provider: Lynn Sanchez Home Meds and New Rx's Prescriptions: New naproxen 250 mg tablet 250 - 500 mg PO BID PRNQty: 40 0RF Rx Instructions: take with a meal aspirin 81 mg tablet,delayed release (DR/EC) 81 mg PO DAILY 7 Days Qty: 7 0RF ondansetron 4 mg tablet,disintegrating 4 mg PO Q6H PRN (Reason: nausea or vomiting) Qty: 5 0RF oxycodone 5 mg tablet 5 - 10 mg PO Q4H MDD 30 mg PRN (Reason: moderate to severe pain) Qty: 18 0RF Continued clonazepam 0.5 mg tablet 0.5 mg PO BID PRN Qty: 60 5RF omeprazole 20 mg capsule,delayed release(DR/EC) 20 mg PO DAILY Qty: 60 6RF omega-3 fatty acids [Fish Oil Concentrate] 1,000 mg capsule 1,000 mg PO DAILY magnesium 250 mg tablet 250 mg PO DAILY multivitamin 1 EACH capsule 1 ea PO DAILY vitamin B complex 1 EACH capsule 1 ea PO DAILY cholecalciferol (vitamin D3) 5,000 UNIT capsule 5,000 unit PO DAILY fluoxetine 40 mg capsule 40 mg PO DAILY Qty: 90 1RF Discharge Instructions Additional Instructions: Surgery: Left shoulder arthroscopy with rotator cuff repair (subscapularis), biceps tenodesis, extensive debridement, and subacromial decompression. Activity: For 6 weeks, you should keep your arm at your side in a neutral position at all times except for physical therapy. Do not try to lift or raise your arm using your own muscles. You should use the sling whenever you are out of the house. You may have to adjust the abduction pillow or remove it for comfort. At home it is best to remove the sling and rest the arm on a pillow at your side or support the operative side with your other hand. You may allow the arm to dangle at your side. A physical therapy prescription will be sent electronically to begin in about 3 weeks. Avoid any weighted elbow flexion or resisted supination for 6-8 weeks. STANDARD protocol. Prescriptions: Aspirin 81 mg take 1 daily starting tomorrow for 7 days to prevent a blood clot Naproxen 250 mg take 1-2 every 12 hours with a meal as needed for moderate pain or swelling Oxycodone 5 mg take 1-2 every 4 hours as needed for severe pain You may use [id number] Tylenol (acetaminophen) as needed for mild pain. These pain medications may be taken all at once or in different combinations as needed. Ondansetron (Zofran) 4 mg take 1 orally dissolving tablet every 6 hours as needed for nausea or vomiting Also, recommend Colace (docusate) or a daily Probiotic as surgery and pain medicine cause constipation. You may try [id number] diphenhydramine (Benadryl) 25-50 mg nightly as a sleep aid Dressings: Remove shoulder bandage after 3 days. Leave the sticky Steri-Strips in place until they fall off or remove them after you shower. Cover the incisions with Band-Aids or leave them open to air. You may shower after 5 days. Follow-up: 10-[address] Morales You may take off the leg compression stockings this evening at home. You may also leave them on a few days longer if you have a history of leg swelling or edema. Let us know right away if you develop any redness, drainage, fevers, chest pain, or trouble breathing. Do not drink alcohol or drive for at least 24 hours after anesthesia. Please call the office during business hours with any questions or concerns. Discharge Orders Discharge Orders: Discharge Order (Routine); Ordered 04/28/22 Ordered By: David Morales DS: Diagnosis Discharge Diagnosis (1) Traumatic tear of left rotator cuff: Status: Acute (2) Tendinitis of long head of biceps brachii of left shoulder: Status: Acute
--- NOTE | 2022-04-28 09:48 | ROE_ITS ---
Date of service: 04/28/22 Time of Service: 07:30 Operative Note Operative Note DATE OF PROCEDURE: 04/28/22 PRE-OP DIAGNOSIS: Left: 1. Rotator cuff tear 2. LHB tendinopathy/ medial dislocation 3. Bursitis POST-OP DIAGNOSIS: same PROCEDURE: Left: 1. Rotator cuff repair, CPT# 31627. This involved repair of the subscapularis using anchors and sutures to reattach the rotator cuff back to the footprint of the lesser tuberosity. 2. Arthroscopic biceps tenodesis, CPT# 57259. This involved arthroscopically suturing and reattaching the long head of the biceps tendon to the proximal humerus at the superior margin of the bicipital groove with a screw at the correct tension. 3. Extensive debridement, CPT# 40437. This involved using arthroscopic hand instruments, power instruments, and radiofrequency instruments to release the long head of the biceps tendon and debride areas of labral tearing, synovitis, and chondromalacia working within the glenohumeral joint anteriorly, superiorly and posteriorly. 4. Subacromial decompression with partial acromioplasty, CPT# 00336. This involved using arthroscopic power instruments and a radiofrequency wand to complete a bursectomy and smooth the undersurface of the acromion. The pastry assistant was medically required in order to help assist in techniques above, which require positioning the arm, holding the arthroscope, and manipulating multiple instruments and sutures at the same time. This cannot be done without the help of an experienced pastry assistant. SURGEON: David Morales LATHER APPRENTICE: Katherin Faria ANESTHESIA TYPE: Local By Surgeon, General LMA/ETT and Primary Nerve Block Refer to Anesthesia Record ESTIMATED BLOOD LOSS: 10 PATHOLOGY: none sent COMPLICATIONS: None Patient was transported to: PACU Patient's condition: stable Implants: Arthrex: knotless 4.75mm SwiveLocks x 1 Indications: The patient was diagnosed with the above conditions and appropriately indicated for surgical intervention. Please see complete medical record for details. Findings: Exam under anesthesia: Full range of motion, no instability. Difficult to palpate biceps. Glenohumeral joint: Significant anterior and superior synovitis. Moderate central glenoid chondromalacia. Moderate posterior labral fraying. Biceps dislocation over the upper aspect of the lesser tuberosity medially with upper margin subscapularis and biceps sling tissue. Remainder of subscapularis intact. Articular rotator cuff intact. Subacromial space: Moderate bursitis. Intact bursal rotator cuff. Procedure Description: In the operating room, general anesthesia was induced. Bilateral shoulders were examined. The patient was positioned in the beachchair position. All bony prominences were well-padded. Preoperative antibiotics were administered. The shoulder was prepped and draped in the usual sterile fashion. The correct patient, procedure, and side of the procedure were all verified prior to incision. Starting through the posterior portal a standard complete diagnostic arthroscopy was performed of the glenohumeral joint including inspection of the long head of the biceps, anterior and superior labrum, subscapularis tendon, supraspinatus and infraspinatus tendons, and axillary recess. The glenoid and humeral head cartilage as well as the posterior labrum were inspected from an anterior viewing portal. Significant findings and interventions noted above. Rigid cannula was inserted anteriorly. It was used to reduce the biceps tendon from medial to lateral back into the bicipital groove. A suture tape FiberLink was then passed around and cinched at the intra-articular aspect of the biceps tendon using a crab claw. A BirdBeak was then used to past freeing of a stitch create a locking stitch through the biceps tendon. The biceps was amputated from the superior labrum using arthroscopic scissors and retracted to the superior aspect of the bicipital groove using direct arm pressure. The undersized punch was used to localize placement of a 4.75 mm knotless SwiveLock anchor, which was deployed with appropriate tension on the biceps repair suture. After completion of this tenodesis, the subscapularis was repaired. There was only mild upper tissue tearing and retraction that remained after recreation of the sling with reduction fixation of the biceps. The knotless repair suture was passed through this upper subscapularis tissue in a simple stitch configuration and shuttled back through the suture anchor knotless repair mechanism completing subscapularis repair. Both repairs were inspected and felt to be stable. There is no undue restriction of external rotation. Starting through the posterior portal, the arthroscope was directed into the subacromial space. The anterior portal was redirected also into the subacromial space. A lateral 50 yard line lateral portal was omitted. A combination of power instruments and a radiofrequency ablator were used to debride bursitis anteriorly, posteriorly, and laterally as well as expose and smooth bone spurring on the undersurface of the acromion. The coracoacromial ligament was minimally released. The bursectomy was completed and the rotator cuff was thoroughly inspected with findings noted above. The shoulder was drained of arthroscopic fluid. All portal sites were copiously irrigated. These incisions were closed using 3-0 Monocryl in a buried fashion and then covered with Mastisol, Steri-Strips, Xeroform, dry gauze, and ABDs. The dressings were covered and secured with Medipore tape. The operative extremity was placed into a sling for immobilization. The patient awoke from anesthesia without complication and was transferred to the recovery room in a stable condition.
[2022-04-28] MEDS: fentaNYL 100 MCG/2 ML VIAL IVP ×2 (10:14→10:19)
[2022-04-28] MEDS: oxyCODONE 5 MG TAB PO (11:17)
--- NOTE | 2022-04-28 11:32 | W.ANESPOSTOP ---
Postoperative Evaluation Date, Time and Location Date Performed: 04/28/22 Time Performed: 11:33 Patient Location: Day Surgery Unit Vital Signs Most Recent Imported Vital Signs: Most Recent Vital Signs Temp Pulse Resp BP Pulse Ox 36.2 C L 74 16 142/80 H 98 04/28/22 11:06 04/28/22 11:06 04/28/22 11:06 04/28/22 11:06 04/28/22 11:06 Pain Score Most Recent Pain Score: Most Recent Pain Score Pain Level 3 04/28/22 11:06 Assessment Mental Status: Awake (Alert & Oriented to Patient Baseline) Airway and Respiratory Function: Patent airway with normal (patient baseline) respiratory exam Cardiovascular Function: Hemodynamically Stable Hydration Status: Adequately Hydrated Nausea & Vomiting: No Nausea or Vomiting Pain: Pain is tolerable per patient Peripheral Nerve Block: Regional nerve block not resolved at time of post operative discharge Teaching Patient Teaching: Discussed Safe Use of Pain Medication Given Recent Anesthesia
== END 2022-04-28 12:10 | disposition home or self-care (01) ==
PROVIDERS: PCP Family Medicine; Visit Provider Student in an Organized Health Care Education/Training Program
PROC: (CPT 29827; principal; 2022-04-28 07:30)
DX: S46.012A Strain of muscle(s) and tendon(s) of the rotator cuff of left shoulder, initial encounter (principal); M75.22 Bicipital tendinitis, left shoulder; X58.XXXA Exposure to other specified factors, initial encounter; M75.52 Bursitis of left shoulder; M65.812 Other synovitis and tenosynovitis, left shoulder
CPT/HCPCS: 29827; 29826; 29828; 29823; J0690; J1100; J2250; J2370; J2405; J3010

== ENCOUNTER 2022-06-21 10:20 | Outpatient (CLI) | payer OTHER, SELFPAY ==
--- NOTE | 2022-06-21 10:00 | DI.RAD_ITS ---
Exam(s) XR KNEE LT 3V AP,LAT,MAIK EXAM: XR KNEE LT 3V AP,LAT,MAIK CLINICAL HISTORY: f/u fx. TECHNIQUE: 2D digital imaging was performed of the left knee. Three images were obtained. Merchant ,AP and lateral views were obtained. COMPARISON: CR XR KNEE LT 3V AP,LAT,MAIK from 02/23/2022 CR XR KNEE LT 2V AP,LAT from 04/18/2022 FINDINGS: BONES: The patellar fracture is less prominent on the current examination suggesting interval healin g. No bony destructive lesion is seen. There is a small enthesophyte at the superior patella. JOINTS: The knee is normally aligned. No joint effusion is seen. Periarticular spurring is seen in th e lateral femoral tibial and patellofemoral joints. SOFT TISSUE: Normal. IMPRESSION: 1. Healing patellar fracture. 2. Degenerative changes of the knee. DATA REPOSITORY: RADIATION DOSE DELIVERED:
== END 2022-06-21 10:21 | disposition home or self-care (01) ==
LOC: DIORS 10:20
PROVIDERS: PCP Family Medicine; Referring Provider Family Medicine; Visit Provider Student in an Organized Health Care Education/Training Program
DX: S82.002D Unspecified fracture of left patella, subsequent encounter for closed fracture with routine healing (principal); X58.XXXD Exposure to other specified factors, subsequent encounter; M17.12 Unilateral primary osteoarthritis, left knee
CPT/HCPCS: 73562

== ENCOUNTER 2022-08-22 11:00 | Outpatient (REF) | payer OTHER, SELFPAY ==
--- NOTE | 2022-08-22 15:45 | PAPFT_PTH ---
PATIENT: Myriam Israel LOC: [facility]#:[id number] AGE/SX: 62/F ROOM: RE08/22/[address]: Lynn Sanchez : 1960 BED: DIS: 08/22/2022 SPEC #: [id number] RECD: 08/23/22 12:41 STATUS: ANTONELLA REOfelia #: [id number] MARIA DEL ROSARIO: 08/22/22 15:[address]: Lynn Sanchez DEPT: [facility] Cytology RECD BY: Ines Verdin Tissues: 1 - CX/ENDOCX FOR PAP SMEARS Procedures: PAP THIN PREP/UVM Screening HPV DNA PROBE Comments: [id number] (CHLAMYDIA/GC)
[2022-08-24 15:48] LABS: Chlamydia Result Negative (Negative); GC Result Negative (Negative)
== END 2022-08-22 11:01 | disposition home or self-care (01) ==
LOC: LBN 11:00
PROVIDERS: PCP Family Medicine; Visit Provider Family Medicine
DX: Z11.51 Encounter for screening for human papillomavirus (HPV) (principal)
CPT/HCPCS: 87491; 87591; 88142; 87624

== ENCOUNTER 2022-10-17 10:01 | Outpatient (CLI) | payer OTHER, SELFPAY ==
[2022-10-17 13:03] LABS: ALT 41 U/L (14-59); AST 23 U/L (15-37); Albumin 4.1 g/dL (3.4-5.0); Alkaline Phosphatase 118 U/L (46-116); Anion Gap 11.7 mmol/L (3-11); BUN 16 mg/dL (7-18); Bilirubin, Total 0.6 mg/dL (0.2-1.0); CO2 24.3 mmol/L (21.0-32.0); CREATININE 0.8 mg/dL (0.55-1.02); Calcium 9.4 mg/dL (8.5-10.1); Calculated LDL 169 mg/dL (<100); Chloride 104 mmol/L (98-107); Cholesterol 257 mg/dL (<200); Estimated GFR 82.74 (mL/min/1.73m2); Glucose 127 mg/dL (74-106); HDL Cholesterol 51 mg/dL (40-60); Potassium 4.2 mmol/L (3.5-5.1); Sodium 140 mmol/L (136-145); Total Protein 7.9 g/dL (6.4-8.2); Triglyceride 185 mg/dL (<150)
== END 2022-10-17 10:02 | disposition home or self-care (01) ==
LOC: LOS 10:01
PROVIDERS: PCP Family Medicine; Visit Provider Family Medicine
DX: F32.89 Other specified depressive episodes (principal); E66.3 Overweight; L40.50 Arthropathic psoriasis, unspecified; K75.81 Nonalcoholic steatohepatitis (NASH); K21.9 Gastro-esophageal reflux disease without esophagitis; R94.6 Abnormal results of thyroid function studies
CPT/HCPCS: 36415; 80053; 80061

== ENCOUNTER 2022-11-07 13:07 | Outpatient (CLI) | payer OTHER, SELFPAY ==
--- NOTE | 2022-11-07 13:00 | DI.RAD_ITS ---
Exam(s) XR KNEE RT 3V AP,LAT,MAIK EXAM: XR KNEE RT 3V AP,LAT,MAIK CLINICAL HISTORY: right knee pain. TECHNIQUE: 2D digital imaging was performed. Three views. COMPARISON: None FINDINGS: BONES: No acute fracture is present. No bony destructive lesion is seen. JOINTS: The femoral tibial joint spaces are maintained. There is periarticular spurring. Degenerati ve change also noted of the proximal tibial fibular joint. There is severe narrowing of the lateral patellofemoral joint and tip, periarticular spurring and mild lateral patellar subluxation. No joint effusion is seen. SOFT TISSUE: Normal. IMPRESSION: Degenerative changes, greatest at the patellofemoral joint DATA REPOSITORY: RADIATION DOSE DELIVERED:
== END 2022-11-07 13:08 | disposition home or self-care (01) ==
LOC: DIORS 13:07
PROVIDERS: PCP Family Medicine; Referring Provider Family Medicine; Visit Provider Physician Assistant
DX: M17.11 Unilateral primary osteoarthritis, right knee (principal)
CPT/HCPCS: 73562

== ENCOUNTER → 2023-03-28 19:24 | Outpatient (CLI) | payer OTHER, SELFPAY ==
--- NOTE | 2023-03-28 15:15 | DI.RAD_ITS ---
Exam(s) XR SHOULDER LT COMPLETE 2+V EXAM: XR SHOULDER LT COMPLETE 2+V CLINICAL HISTORY: evaluate pathology. TECHNIQUE: 2D digital imaging was performed. Three views. COMPARISON: CR XR SHOULDER LT COMPLETE 2+V from 12/06/2021 FINDINGS: BONES: No acute fracture is present. No bony destructive lesion is seen. JOINTS: No dislocation present. Mild spurring at AC joint and undersurface of the acromion. Mild sp urring at the glenoid and greater tuberosity. Glenohumeral joint space is maintained. SOFT TISSUE: Normal. IMPRESSION: Mild degenerative changes. DATA REPOSITORY: RADIATION DOSE DELIVERED:
--- NOTE | 2023-03-28 15:15 | DI.RAD_ITS ---
Exam(s) XR ELBOW LT COMPLETE EXAM: XR ELBOW LT COMPLETE CLINICAL HISTORY: evaluate pathology. TECHNIQUE: 2D digital imaging was performed. Three views. COMPARISON: No exams were available for comparison FINDINGS: BONES: No acute fracture is present. No bony destructive lesion is seen. JOINTS: The elbow is normally aligned. No joint effusion is seen. SOFT TISSUE: Normal. IMPRESSION: Unremarkable radiographs of the left elbow. DATA REPOSITORY: RADIATION DOSE DELIVERED:
== END ==
PROVIDERS: PCP Family Medicine; Visit Provider Nurse Practitioner Family
DX: M25.522 Pain in left elbow (principal); M25.512 Pain in left shoulder
CPT/HCPCS: 73030; 73080

== ENCOUNTER 2024-06-25 04:47 | Outpatient (CLI) | payer MEDICAID, SELFPAY ==
[2024-06-25 12:36] LABS: Hemoglobin A1C 5.7 % (<5.7)
[2024-06-25 12:51] LABS: ALT 33 U/L (14-59); AST 18 U/L (15-37); Albumin 3.7 g/dL (3.4-5.0); Alkaline Phosphatase 109 U/L (46-116); Anion Gap 9.1 mmol/L (3-11); BUN 15 mg/dL (7-18); Bilirubin, Total 0.65 mg/dL (0.2-1.0); CO2 24.9 mmol/L (21.0-32.0); CREATININE 0.8 mg/dL (0.55-1.02); Calcium 9.1 mg/dL (8.5-10.1); Calculated LDL 183 mg/dL (<100); Chloride 107 mmol/L (98-107); Cholesterol 289 mg/dL (<200); Estimated GFR 82.23 (mL/min/1.73m2); Glucose 114 mg/dL (74-106); HDL Cholesterol 71 mg/dL (40-60); Potassium 4.3 mmol/L (3.5-5.1); Sodium 141 mmol/L (136-145); TSH (W/Ref FT4) 2.82 uIU/mL (0.36-3.74); Triglyceride 176 mg/dL (<150)
== END 2024-06-25 04:48 | disposition home or self-care (01) ==
LOC: LBO 04:48
PROVIDERS: PCP Family Medicine; Visit Provider Family Medicine
DX: R73.01 Impaired fasting glucose (principal); E66.3 Overweight; E03.9 Hypothyroidism, unspecified; R79.89 Other specified abnormal findings of blood chemistry; Z00.00 Encounter for general adult medical examination without abnormal findings; K75.81 Nonalcoholic steatohepatitis (NASH); Z13.6 Encounter for screening for cardiovascular disorders
CPT/HCPCS: 36415; 80053; 80061; 83036; 84443

== ENCOUNTER → 2024-12-25 11:23 | Outpatient (BNVA) | payer MEDICARE, SELFPAY | PROVIDERS: PCP Family Medicine; Referring Provider Family Medicine; Visit Provider Physical Therapy Assistant | DX: Z12.11 Encounter for screening for malignant neoplasm of colon (principal); K57.92 Diverticulitis of intestine, part unspecified, without perforation or abscess without bleeding | CPT/HCPCS: S0285 ==

== ENCOUNTER 2025-01-09 09:44 | Day surgery (SDC) | payer MEDICARE, SELFPAY ==
--- NOTE | 2025-01-08 19:04 | W.ANESPRE ---
General Info Date of Service Date Performed: 01/09/25 Height: 5 ft 9 in Weight: 79 kg Body Mass Index (BMI): 25.7 Surgical Procedure: Operation Date: 01/09/25 11:20 Proposed Procedure Side Surgeon p Colonoscopy/Gastroscopy Evan Wu MD Meds Allergies and Home Medications Allergies Allergy/AdvReac Type Severity Reaction Status Date / Time bacitracin Allergy Swelling/Ed Verified 01/09/25 10:18 mariama codeine AdvReac Intermediate VOMITING Verified 01/09/25 10:18 Home Medication ?Medication ?Instructions ?Recorded multivitamin 1 ea PO DAILY 11/12/12 vitamin B complex 1 ea PO DAILY 11/12/12 cholecalciferol (vitamin D3) 125 5,000 unit PO DAILY 08/09/16 mcg (5,000 unit) capsule magnesium 250 mg tablet 250 mg PO DAILY 08/18/20 omega-3 fatty acids 1,000 mg 1,000 mg PO DAILY 08/18/20 capsule (Fish Oil Concentrate) berberine-herbal comb no.18 capsule 2 cap PO DAILY 08/31/23 fluoxetine 20 mg capsule 20 mg PO DAILY #90 caps 01/09/24 celecoxib 200 mg capsule 200 mg PO BID #180 caps 09/03/24 doxepin 10 mg capsule 10 mg PO QHS PRN insomnia #90 caps 09/03/24 fluoxetine 40 mg capsule 40 mg PO DAILY #90 caps 09/03/24 omeprazole 20 mg capsule,delayed 20 mg PO DAILY #60 caps 09/03/24 release bupropion HCl 300 mg 24 hr tablet, 300 mg PO QAM #30 tabs 11/27/24 extended release ondansetron 4 mg disintegrating 4 mg PO Q6H PRN nausea or vomiting 12/26/24 tablet #5 tabs Current Visit Medications: Current Medications Generic Name Dose Route Start Last Admin Trade Name Freq PRN Reason Stop Dose Admin Ringer's Solution 1,000 mls @ 80 mls/hr 01/09/25 06:00 IV 01/09/25 23:59 INFUSION RAVEN IV Miscellaneous Supplies 1 each 01/09/25 06:00 Iv Access IV 01/09/25 23:59 DIRECTED RAVEN Sodium Chloride 0 ml 01/09/25 06:00 Normal Saline Flush 10 Ml Syr IV 01/09/25 23:59 PRN PRN Sodium Chloride 0 ml 01/09/25 06:00 Normal Saline 10 Ml Vial IJ 01/09/25 23:59 DIRECTED PRN Sterile Water 0 ml 01/09/25 06:00 Water,Injection,Sterile 10 Ml Vial IJ 01/09/25 23:59 DIRECTED PRN PFSH Active Problems Active Problems: Problem Status Onset Code Elevated BP without diagnosis of hypertension Acute R03.0 Mixed hyperlipidemia Acute E78.2 Depression Chronic F32.9 Anxiety Chronic F41.9 Peripheral neuritis Acute G62.9 STUART (nonalcoholic steatohepatitis) Acute K75.81 Overweight Acute 10/10/16 E66.3 Sensorineural hearing loss (SNHL) of both ears Acute 08/10/14 H90.3 Elevated TSH Acute R79.89 Patellofemoral arthritis of left knee Acute M17.12 Chronic GERD Acute K21.9 Patellofemoral arthritis of right knee Acute M17.11 Medical History Medical History Psoriatic arthritis (10/10/16) Tendinitis of long head of biceps brachii of left shoulder S/p rotator cuff repair and biceps tenodesis Fracture of patella, left, closed (02/23/22) Traumatic tear of left rotator cuff (11/09/21) S/p rotator cuff repair Pancolonic diverticulosis 04/26/15; DR. CONLEY Mucous polyp of cervix Migraine equivalent syndrome (09/09/14) TIA like symptoms History of asthma Acromioclavicular joint arthritis (05/10/15) Hx pulmonary embolism (~08/2020) occurred 3 days after covid vaccination update 04/26/22 Report 08/17/20 US Findings: No evidence of deep venous thrombosis of the left lower extremity. History of melanoma PTSD (post-traumatic stress disorder) Achilles tendonosis of right lower extremity Medical History Comments:: Marijauna 4x week for anxiety, edibles Surgical History Surgical History Status post arthroscopy of left shoulder (04/28/22) Hx of foot surgery bilateral; approx S/P tonsillectomy and adenoidectomy H/O shoulder surgery Tobacco Smoking/Tobacco Use Status: Never Passive smoking exposure: Yes Second hand exposure: Yes Alcohol Alcohol Intake: current Alcohol intake frequency: a few times a month Alcohol type: hard liquor Substance Use Substance use: Occasionally Substance use type: marijuana Details: 4x week for anxiety, edibles Vital Signs and Lab Results Vital Signs Most Recent Vital Signs in EMR: Temp Pulse Resp BP Pulse Ox 36.2 C L 81 20 113/74 98 01/09/25 10:10 01/09/25 10:10 01/09/25 10:10 01/09/25 10:10 01/09/25 10:10 Anesthesia Assessment and Plan Anesthesia History Personal History: No History of Anesthesia Complications Family History: No Family History of Anesthesia Complications Exercise Tolerance Exercise Tolerance: Metabolic Equivalents>4 Cardiac & Pulmonary Exam Cardiac Exam: Normal S1/S2 Heart Sounds Pulmonary Exam: Clear Bilateral Breath Sounds Implantable Cardiac Device Does patient have a Pacemaker or an ICD?: No Airway Exam Known Difficult Airway: No Mallampati Class: 2 Mouth Opening: Normal (> 3cm) Thyromental Distance: Greater than 3 cm Neck Range of Motion: Full ROM Neck Circumference: Normal Teeth Condition: Normal Dentition ASA Classification ASA Score: ASA 2 Emergency Case?: No NPO Status NPO Status: NPO Clears >2 hours, Solids >8 hours Anesthesia Plan Resuscitation Status: Full Code Anesthesia Technique: General Anesthesia Airway Planned: Natural Airway Monitors Used: Standard Monitors Preoperative Comments:: 64 yo for EGD/colo. Sig PMHx: GERD (omeprazole), anxiety/depression ECG: sinus Previous Anes: -shoulder, glide 3 grade 1, easy mask.
--- NOTE | 2025-01-08 19:43 | W.PM.DSUDISC ---
Date of service: 01/09/25 Discharge Plan Disposition Patient Disposition: Home Condition: Good Discharge Details Reason For Visit: EGD and colonoscopy Attending Provider: Evan Wu Primary Care Provider: Lynn Sanchez Home Meds and New Rx's Prescriptions: Continued berberine-herbal comb no.18 Capsule 2 cap PO DAILY celecoxib 200 mg capsule 200 mg PO BID Qty: 180 3RF fluoxetine 40 mg capsule 40 mg PO DAILY Qty: 90 3RF omeprazole 20 mg capsule,delayed release(DR/EC) 20 mg PO DAILY Qty: 60 6RF doxepin 10 mg capsule 10 mg PO QHS PRN (Reason: insomnia) Qty: 90 3RF ondansetron 4 mg tablet,disintegrating 4 mg PO Q6H PRN (Reason: nausea or vomiting) Qty: 5 0RF omega-3 fatty acids [Fish Oil Concentrate] 1,000 mg capsule 1,000 mg PO DAILY magnesium 250 mg tablet 250 mg PO DAILY multivitamin 1 EACH capsule 1 ea PO DAILY vitamin B complex 1 EACH capsule 1 ea PO DAILY cholecalciferol (vitamin D3) 5,000 UNIT capsule 5,000 unit PO DAILY fluoxetine 20 mg capsule 20 mg PO DAILY Qty: 90 3RF Rx Instructions: Take with 40mg capsule - TDD 60mg bupropion HCl 300 mg tablet extended release 24 hr 300 mg PO QAM Qty: 30 12RF Discontinued bisacodyl [Dulcolax (bisacodyl)] 5 mg tablet,delayed release (DR/EC) 5 mg PO ONCE Qty: 4 0RF Rx Instructions: Colonoscopy Bowel Prep- Per Instructions polyethylene glycol 3350 17 gram/dose powder 238 g PO ONCE Qty: 238 0RF Rx Instructions: Colonoscopy Bowel Prep- Per Instructions Discharge Instructions Instructions: Diverticulosis Additional Instructions: Myriam, it was so nice to meet you today, and I hope you feel well after the procedure. Things went very smoothly. With regards to your upper endoscopy, everything appears quite normal. Your esophagus is normal in size and shape, and I do not see any signs of irritation or inflammation. Interestingly, the connection of your esophagus down onto your stomach also looks very healthy, which is a little bit atypical for somebody with longstanding gastroesophageal reflux disease. It could be that you have a small sliding hiatal hernia, which occurs when the top part of your stomach slips above your diaphragm a little bit. It is not always easy to see this during EGD procedures, but there are some features that raise suspicion for this as a source of your symptoms. I did do some biopsies in your stomach, as well as your esophagus to see if that sheds any light on your symptoms. This biopsy results will take a week or 2 to get back, but once I have that information I will be in touch. With regards to your colonoscopy, you have diverticulosis. This occurs when the muscular layer of the colon wall weakens a bit, and the inside layer or mucosa, pockets or pouches outwards through it. The pockets are called diverticula, and the condition of having them is known as diverticulosis. These can get inflamed or infected during flareups that we often times refer to as diverticulitis. BASIC information here about typical approaches to diverticulosis. Otherwise, there are no signs of any tumors or polyps. If you need anything, or have any questions at all, please do not hesitate to call. Otherwise, I will be in touch once I get the results of the stomach biopsies. 1. If tolerated, consume a soft, low fiber diet for 1-2 days. 2[address] Do not drive, drink alcohol, operate machinery, make critical decisions, or do activities that require coordination or balance for 24 hours. 3. Because air was put into your colon during the procedure, expelling air from your rectum (passing gas or farting) is normal. 4. You may not have a bowel movement for 1-3 days because of the colonoscopy prep. This is normal. 5. You may experience a sore throat for 24 to 48 hours. You may use throat lozenges or gargle with warm salt water to relieve the discomfort. 6. Because air was put into your stomach during the procedure, you may experience some belching. 7. Go directly to the emergency room if you notice any of the following: Develop chills (warm to touch), or if you have a thermometer and your temperature is above 101 Difficulty breathing or difficultly swallowing Persistent vomiting Severe abdominal pain, other than gas cramps Severe chest pain Black, tarry stools Any bleeding ? exceeding one tablespoon 8. Call your physician if the site where your intravenous was started becomes red, swollen, painful, and warm to touch. 9. Your physician has reviewed your pre-procedure medications. Please continue to take those medications as previously ordered. You will be given specific information/education regarding any changes to your medications before leaving. Stand Alone Forms: Anesthesia Discharge Inst., DSU Post EGD Instructions, Colonoscopy Post Instructions, Press Jose (DSU) Activity:: Activity as Tolerated Diet:: As Tolerated Discharge Orders Discharge Orders: Discharge Order (Routine); Ordered 01/08/25 Ordered By: Evan Wu DS: Diagnosis Discharge Diagnosis (1) Chronic GERD: Status: Acute Asessment and Plan: Follow-up on biopsy results
--- NOTE | 2025-01-08 19:45 | ENDO_ITS ---
Date of service: 01/09/25 Time of Service: 12:17 Endoscopy Report DATE OF PROCEDURE: 01/09/25 PRE-OP DIAGNOSIS: GERD and screening colonoscopy POST-OP DIAGNOSIS: other (Grade 1 sliding hiatal hernia; sigmoid diverticulosis) PROCEDURE: EGD with biopsies and colonoscopy SURGEON: Evan Wu ANESTHESIA TYPE: General:No Airway ESTIMATED BLOOD LOSS: 5 PATHOLOGY: other (Nondirected biopsies of gastric antrum and body to rule out Helicobacter pylori. Nondirected biopsies of esophagus to rule out esophagitis .) COMPLICATIONS: None DISPOSITION: same day INDICATIONS: Myriam is a 64 year old woman with refractory GERD depite PPI therapy who also needs a screening colonoscopy PREP: Miralax/Dulcolax PROCEDURE START TIME: 11:39 PROCEDURE END TIME: 12:02 COLONOSCOPY RETRACTION TIME: 7 FINDINGS: Normal-appearing GE junction and Z-line at 38 cm past the incisors. Sigmoid diverticulosis PROCEDURE DESCRIPTION: After the initiation of anesthesia, and with the assistance of a bite block, I advanced a standard gastroscope through the mouth past the hypopharynx and into the esophagus.? Under the direct vision of the scope, I advanced down the towards into the stomach.? The upper, mid, and lower esophagus were normal in course and caliber. There is no signs of inflammation. The GE junction measured 38 cm past the incisors. Narrowband imaging was used to assist with the analysis here. The Z-line was totally regular. I saw no features of Weaver's esophagus. It did appear that there might be a grade 1 sliding hiatal hernia. I can advance across the lower GE junction into the stomach with ease. Stomach is insufflated into the rugae were obliterated. I performed retroflexion. Again, there are subtle signs of a hiatal hernia. I do not see any signs of active inflammation or irritation. I can advance down around the incisura angularis into the duodenum with ease. The duodenum was totally normal. I then brought the camera back into the stomach and performed some nondirected biopsies of the gastric antrum and body to rule out Helicobacter pylori. There was minimal bleeding as these biopsies were performed using cold forceps. I then brought the camera up into the esophagus and perform some nondirected biopsies of the esophagus to rule out esophagitis. The camera was then advanced back down into the stomach and was empty prior to removal. Next we moved Myriam into the left lateral decubitus position. I began by performing an external anorectal exam.? Perineum and skin were normal, as was the anal verge.? There was no evidence of external hemorrhoids.? Next, I performed a digital rectal exam.? I did not appreciate any abnormal findings.? Next, I advanced a colonoscope into the rectal vault.? I performed retroflexion.? This appeared normal.? Using irrigation, I then advanced the colonoscope beyond the rectal folds and into the sigmoid colon before advancing towards the cecum.? The scope was noted to be in the cecum by identification of the ileocecal valve and appendiceal orifice.? I then began withdrawing the colonoscope using repeated irrigation as necessary for full evaluation of the colonic mucosa. There is sigmoid diverticulosis. Once the scope was withdrawn to the level of the rectum, great care was taken to examine portions of the rectal folds.? Finally, the scope was withdrawn and the patient was brought to the same-day surgery recovery unit as the anesthetic wore off. ?The findings and instructions were shared with the patient prior to discharge.
[2025-01-09 10:10] VITALS: BP 113/74; PULSE 81; RESP 20; TEMP 36.2; O2SAT 98
[2025-01-09] MEDS: Lactated Ringers 1,000 ML 80 ML IV (10:25)
[2025-01-09 11:15] VITALS: BMI 25.7
--- NOTE | 2025-01-09 11:45 | STOM_PTH ---
PATIENT: Myriam Israel LOC: [facility] U#:[id number] AGE/SX: 64/F ROOM: RE01/09/[address]: Evan Wu MD : 1960 BED: DIS: 01/09/2025 SPEC #: [id number] RECD: 01/09/25 12:41 STATUS: ANTONELLA RE #: [id number] MARIA DEL ROSARIO: 01/09/25 11:[address]: Evan Wu DEPT: Surgical Specimen RECD BY: Ines Verdin ENTERED: 01/09/25 12:42 SP TYPE: STOMACH OTHR DR: Lynn Sanchez Tissues: 1 - STOMACH BIOPSY 2 - STOMACH BIOPSY 3 - ESOPHAGUS BIOPSY Procedures: GROSS AND MICRO LEVEL 4 IMMUNOPEROXIDASE STAIN Comments: [id number]
[2025-01-09 12:07] VITALS: BP 119/72; PULSE 79; RESP 14; TEMP 36; O2SAT 99
--- NOTE | 2025-01-09 12:13 | W.ANESPOSTOP ---
Postoperative Evaluation Date, Time and Location Date Performed: 01/09/25 Time Performed: 12:13 Patient Location: Day Surgery Unit Vital Signs Most Recent Imported Vital Signs: Most Recent Vital Signs Temp Pulse Resp BP Pulse Ox 36 C L 79 14 119/72 99 01/09/25 12:07 01/09/25 12:07 01/09/25 12:07 01/09/25 12:07 01/09/25 12:07 Pain Score Most Recent Pain Score: Most Recent Pain Score Pain Level 0 01/09/25 12:07 Assessment Mental Status: Awake (Alert & Oriented to Patient Baseline) Airway and Respiratory Function: Patent airway with normal (patient baseline) respiratory exam Cardiovascular Function: Hemodynamically Stable Hydration Status: Adequately Hydrated Nausea & Vomiting: No Nausea or Vomiting Pain: Pt. Denies Any Pain Peripheral Nerve Block: Patient did not receive a nerve block
[2025-01-09 12:39] VITALS: BP 125/68; PULSE 79; RESP 14; TEMP 36.5; O2SAT 100
== END 2025-01-09 12:50 | disposition home or self-care (01) ==
LOC: SUR 09:45
PROVIDERS: PCP Family Medicine; Visit Provider Surgery
PROC: (CPT 43239; principal; 2025-01-09 11:15)
DX: Z12.11 Encounter for screening for malignant neoplasm of colon (principal); K21.9 Gastro-esophageal reflux disease without esophagitis; K44.9 Diaphragmatic hernia without obstruction or gangrene; K57.30 Diverticulosis of large intestine without perforation or abscess without bleeding; K31.89 Other diseases of stomach and duodenum
CPT/HCPCS: 43239; G0121; 88305; 88361; J2405; J2704